=== PATIENT | male | born 1985 | race Caucasian/White ===

== ENCOUNTER → 2022-10-11 | Outpatient (CLI) | payer OTHER, SELFPAY | END | disposition home or self-care (01) | LOC: SL 10:46 | PROVIDERS: Visit Provider Nurse Practitioner Acute Care | DX: G47.33 Obstructive sleep apnea (adult) (pediatric) (principal); Z99.89 Dependence on other enabling machines and devices ==

== ENCOUNTER 2023-01-07 23:32 | Emergency (ER) | payer OTHER, SELFPAY ==
[2023-01-07 23:33] VITALS: BP 139/82; PULSE 76; RESP 18; TEMP 36.1; O2SAT 93; BMI 38.3
--- NOTE | 2023-01-08 00:14 | EKG12_ITS ---
Test Reason : SOB Blood Pressure : / mmHG Vent. Rate : 075 BPM Atrial Rate : 075 BPM P-R Int : 194 ms QRS Dur : 094 ms QT Int : 376 ms P-R-T Axes : 038 093 013 degrees QTc Int : 419 ms Normal sinus rhythm Rightward axis Borderline ECG Confirmed by FIFI MARY, TIM ([id number]), make up editor SAULO SEO ([id number]) on 01/09/2023 10:42:52 AM Referred By: BB Confirmed By:TIM CALIX MD
--- NOTE | 2023-01-08 00:21 | EDS_ITS ---
HPI History of Present Illness Chief Complaint: Shortness of Breath Informant: patient Onset/Context/Timing Onset: Hours (2) Activity at onset: gradual, onset and activity on onset (Sitting at rest playing cards) Timing: Continuous Quality: Positive for Tightness Location: Substernal (Across chest) Current Severity: Mild Maximum Severity: Moderate Worsened By: Nothing Relieved By: Nothing Associated Symptoms: Positive for Dyspnea and - (Radiation to left arm and tingling in left hand fingers) Narrative Narrative: Discomfort in chest that he thought maybe was his asthma so he tried albuterol b ut it did not help, then it started going into his left arm and tingling in his left hand so he came to the emergency department. No history of heart problems but he does have a history of hypertension and diabetes. [facility] Medical History (Updated 01/08/23 @ 02:[address] Conor Chaparro MD) Asthma Hypertension Impingement of right shoulder NORA (obstructive sleep apnea) Right shoulder pain Type 2 diabetes mellitus Home Medications allopurinol 300 mg tablet 300 mg PO DAILY 09/18/22 [History Last Taken Unknown] blood sugar diagnostic 09/18/22 [History Last Taken Unknown] dextroamphetamine-amphetamine ER 25 mg 24hr capsule,extend release (Adderall XR) 25 mg PO QAM 09/18/22 [History Last Taken Unknown] epinephrine 0.3 mg/0.3 mL injection, auto-injector (EpiPen) 0.3 mg IM ONCE 09/18/22 [History Last Taken Unknown] fenofibrate nanocrystallized 145 mg tablet 145 mg PO DAILY 09/18/22 [History Last Taken Unknown] glimepiride 2 mg tablet 4 mg PO BID 09/18/22 [History Last Taken Unknown] insulin NPH isoph U-100 human 100 unit/mL (3 mL) subcutaneous pen (Humulin N NPH U-100 Insulin KwikPen) 30 unit subcut BID 09/18/22 [History Last Taken Unknown] ipratropium 0.5 mg-albuterol 3 mg (2.5 mg base)/3 mL nebulization soln 3 ml inhalation 6XD 09/18/22 [History Last Taken Unknown] lisinopril 20 mg tablet 20 mg PO BID 09/18/22 [History Last Taken Unknown] loratadine 10 mg tablet (Allergy Relief (loratadine)) 10 mg PO DAILY 09/18/22 [History Last Taken Unknown] metformin 1,000 mg tablet 1,000 mg PO BIDWMEAL 09/18/22 [History Last Taken Unknown] methocarbamol 500 mg tablet 500 mg PO BID 09/18/22 [History Last Taken Unknown] naltrexone 50 mg tablet 12.5 mg PO DAILY 09/18/22 [History Last Taken Unknown] olopatadine 0.1 % eye drops 1 drp ophthalmic (eye) BID 09/18/22 [History Last Taken Unknown] sildenafil 100 mg tablet 100 mg PO DAILY PRN sexual activity 09/18/22 [History Last Taken Unknown] tirzepatide 12.5 mg/0.5 mL subcutaneous pen injector 12.5 mg subcut QWEEK 09/18/22 [History Last Taken Unknown] triamcinolone acetonide 55 mcg nasal spray aerosol (Nasacort) 2 spray intranasal DAILY 09/18/22 [History Last Taken Unknown] albuterol sulfate 90 mcg/actuation aerosol inhaler 2 puff inhalation Q6H PRN shortness of breath or wheezing #8.5 grams 09/26/22 [Rx Last Taken Unknown] ropinirole 1 mg tablet 2 mg (2 x 1 mg) PO DAILY #60 tabs 09/29/22 [Rx Last Taken Unknown] montelukast 10 mg tablet 10 mg PO DAILY #90 tabs 12/11/22 [Rx Last Taken Unknown] albuterol sulfate 2.5 mg/3 mL (0.083 %) solution for nebulization 2.5 mg (3 mL) inhalation Q4H PRN shortness of breath or wheezing #180 mL 12/20/22 [Rx Last Taken Unknown] budesonide 160 mcg-glycopyr 9 mcg-formot 4.8 mcg/actuation HFA inhaler (Breztri Aerosphere) 2 inh inhalation BID #10.7 grams 12/20/22 [Rx Last Taken Unknown] pantoprazole 40 mg tablet,delayed release 40 mg PO DAILY #14 tabs 01/08/23 [Rx Last Taken Unknown] Allergy/AdvReac Type Severity Reaction Status Date / Time Fish Containing Products Allergy Severe Anaphylaxis Verified 01/07/23 23:33 peanut Allergy Severe Anaphylaxis Verified 01/07/23 23:33 coconut Allergy Mild Hives Verified 01/07/23 23:33 grass pollen Allergy Mild Other Verified 01/07/23 23:33 Iodinated Contrast Media Allergy Mild unknown Verified 01/07/23 23:33 mold Allergy Mild Other Verified 01/07/23 23:33 Family History Father Asthma Sister Chronic bronchitis Surgical History History of hip surgery History of surgery on lower extremity Social History Smoking Status: Never smoker ROS ROS ED Constitutional Constitutional ED: Denies chills or fever(s) Eyes Eyes: Denies change in vision or diplopia ENT ENT ED: Denies rhinorrhea or sore throat Cardiovascular Cardiovascular: Reports chest pain; Denies palpitations Respiratory/Chest Respiratory/Chest: Reports dyspnea; Denies cough Gastrointestinal Gastrointestinal: Denies abdominal pain, diarrhea, nausea or vomiting Genitourinary Genitourinary ED: Denies dysuria or hematuria Musculoskeletal Musculoskeletal: Reports as per HPI and extremity pain; Denies back pain or neck pain Integumentary Denies abscess or rash Neurologic Neurologic: Reports paresthesias LUE (hand); Denies headache(s) or weakness Psychiatric Psychiatric: Denies anxiety or suicidal thoughts EXAM Physical Exam Const Vital Signs: 01/07/23 23:33 01/07/23 23:50 01/07/23 23:51 Temperature 97 F L Temperature Source Temporal Pulse Rate 76 Respiratory Rate 18 Respiratory Effort Normal Respiratory Depth Normal Respiratory Pattern Normal Normal Blood Pressure 139/82 H Blood Pressure Mean 101 Pulse Ox 93 Oxygen Delivery Method Room Air Room Air 01/08/23 00:14 Temperature Temperature Source Pulse Rate Respiratory Rate Respiratory Effort Respiratory Depth Respiratory Pattern Blood Pressure Blood Pressure Mean Pulse Ox Oxygen Delivery Method Room Air Positive well nourished and well developed General Appearance ED: well developed and NAD HEENT Reports moist mucous membranes normocephalic and atraumatic Eyes PERRL and EOMs intact bilaterally Neck full ROM and supple Resp normal respiratory effort and clear to auscultation bilaterally Cardio regular rate, regular rhythm and no murmurs GI non-tender and non-distended Auscultation: normoactive bowel sounds Palpation: soft Back/Spine no CVA tenderness General Back: other FROM Extremity normal to inspection General Extremety ED: Negative for edema, pulses abnormal or tenderness General Extremity: Negative for edema or pulses abnormal Neuro oriented x3, CN's II-XII intact bilaterally and no sensory deficits noted Sensorium / Orientation: awake and alert Motor Exam: strength 5/5 throughout Skin no rashes or lesions noted and no wounds Heart Score History: Moderately Suspicious Age: </= 45 years Risk Factors: 1 or 2 Risk Factors Score: 2 MDM MDM MDM Narrative Medical decision making narrative: Differential includes cardiac etiologies such as acute coronary syndrome, he has risk factors for that but is young for that problem, normal EKG argues against it at this time. Esophageal etiologies also in the differential diagnosis, less likely to be aortic dissection, pneumothorax, pulmonary embolus based on symptoms and vital signs. Chest x-ray 1 view on my interpretation normal s howing narrow mediastinum, no pneumonia or pneumothorax radiology in agreement. His initial troponin is negative, but his glucose came back at almost 500. Treated that with fast acting insulin and also gave him a GI cocktail which really seem to help his discomfort that was residual, as well as the left upper extremity symptoms. Repeat troponin came back normal as well. Given all of this uncomfortable discharging the patient home, we are going to repeat his blood sugar to make sure it is down prior to doing so and he is advised to follow-up. He is comfortable with that plan we will put him on 2-week course of a PPI. Lab Data Attestation: I reviewed the patient's lab results. Labs: Laboratory Results - last 24 hr 01/08/23 01/08/23 01/08/23 00:24 01:08 02:40 WBC 10.6 RBC 5.36 Hgb 15.0 Hct 43.8 MCV 81.7 MCH 28.0 MCHC 34.2 RDW Std Deviation 36.1 RDW Coeff of Anna 12.2 Plt Count 262 MPV 9.4 Immature Gran % (Auto) 0.800 Neut % (Auto) 65.2 Lymph % (Auto) 27.6 Marshall % (Auto) 4.5 Eos % (Auto) 1.4 Baso % (Auto) 0.5 Absolute Neuts (auto) 6.9 Absolute Lymphs (auto) 2.92 Nucleated RBC % 0 Sodium 131 L Potassium 4.4 Chloride 96 L Carbon Dioxide 29.0 Anion Gap 6 BUN 28 H Creatinine 1.28 Estim Creat Clear Calc 80.79 Est GFR (MDRD) Af Amer 81 Est GFR (MDRD) Non-Af 67 BUN/Creatinine Ratio 21.9 H Glucose 492 H* Calcium 9.5 Troponin I High Sens 13 14 POC Glucose 428 H Radiography Diagnostic Testing: Clinical Impression(s) from Imaging Studies Chest X-Ray 01/08/23 00:30 IMPRESSION: Normal x-ray examination of the chest. Electronically Signed: Kamille Polo MD at 0:50 EST , Rhythm Strip Rhythm Strip: Sinus Rhythm Rate: 75 Ectopy: None EKG Initial EKG: Attestation: I personally reviewed and interpreted this EKG as follows: Interpretation: Sinus Rhythm and No Acute Injury Pattern Comments: nml EKG Discharge Plan Triage Chief Complaint: Shortness of Breath Other Complaint: Other, Pain/Inj ED Provider: Conor Chaparro Dx/Rx/DC Orders Clinical Impression: Hyperglycemia due to type 2 diabetes mellitus, Chest pain, unspecified Instructions: ED Chest Pain, Noncardiac, ED Diabetic Hyperglycemia Prescriptions: New pantoprazole 40 mg tablet,delayed release (DR/EC) 40 mg PO DAILY Qty: 14 0RF No Action allopurinol 300 mg tablet 300 mg PO DAILY (DME) blood sugar diagnostic Strip See Rx Instructions .Route Rx Instructions: As directed dextroamphetamine-amphetamine [Adderall XR] 25 mg capsule,extended release 24hr 25 mg PO QAM epinephrine [EpiPen] 0.3 mg/0.3 mL auto-injector 0.3 mg IM ONCE Rx Instructions: as a single dose; may repeat once fenofibrate nanocrystallized 145 mg tablet 145 mg PO DAILY glimepiride 2 mg tablet 4 mg PO BID Humulin N NPH Insulin KwikPen 100 unit/mL (3 mL) insulin pen 30 unit subcut BID Rx Instructions: 38 units with breakfast, 38 units with supper. ipratropium-albuterol 0.5 mg-3 mg(2.5 mg base)/3 mL solution for nebulization 3 ml inhalation 6XD lisinopril 20 mg tablet 20 mg PO BID loratadine [Allergy Relief (loratadine)] 10 mg tablet 10 mg PO DAILY metformin 1,000 mg tablet 1,000 mg PO BIDWMEAL methocarbamol 500 mg tablet 500 mg PO BID naltrexone 50 mg tablet 12.5 mg PO DAILY olopatadine 0.1 % drops 1 drp ophthalmic (eye) BID Rx Instructions: separate doses by at least 6-8 hours sildenafil 100 mg tablet 100 mg PO DAILY PRN (Reason: sexual activity) Rx Instructions: administer 30 minutes to 4 hours before activity tirzepatide 12.5 mg/0.5 mL pen injector 12.5 mg subcut QWEEK triamcinolone acetonide [Nasacort] 55 mcg aerosol,spray 2 spray intranasal DAILY Rx Instructions: administer into each nostril albuterol sulfate 90 mcg/actuation HFA aerosol inhaler 2 puff inhalation Q6H PRN (Reason: shortness of breath or wheezing) Qty: 8.5 11RF Breztri Aerosphere 160-9-4.8 mcg/actuation HFA aerosol inhaler 2 inh inhalation BID Qty: 10.7 11RF albuterol sulfate 2.5 mg /3 mL (0.083 %) solution for nebulization 2.5 mg inhalation Q4H PRN (Reason: shortness of breath or wheezing) Qty: 180 6RF ropinirole 1 mg tablet 2 mg PO DAILY Qty: 60 11RF Rx Instructions: Takes 1mg 3 hours prior to bed and 1mg at HS montelukast 10 mg tablet 10 mg PO DAILY Qty: 90 3RF Primary Care Provider: SUNNI CHUN Referrals: SUNNI CHUN [Other] - 5-7 Days Disposition Disposition: Home, Self Care
[2023-01-08] MEDS: Mag Hydrox/Al Hydrox/Simeth 30 ML UDC PO (00:27)
--- NOTE | 2023-01-08 00:30 | RAD_ITS ---
STUDY: X-RAY CHEST REASON FOR EXAM: Male, 37 years old. chest pain TECHNIQUE: Single AP portable view of the chest. COMPARISON: None. FINDINGS: The lungs are clear and underexpanded. There is no demonstrated pleural abnormality. Normal size heart. Normal mediastinum and mauricio. Normal visualized pulmonary arteries. Normal visualized aortic arch and descending thoracic aorta. Normal visualized thoracic spine. Normal visualized ribs, clavicles, and shoulders. There is no demonstrated abnormality of the visualized soft tissue structures of the upper abdomen. RAD/Chest 1 View (Portable) IMPRESSION: Normal x-ray examination of the chest. Electronically Signed: Kamille Polo MD at 0:50 EST ,
[2023-01-08 00:31] LABS: Absolute Lymphocyte Count 2.92 X10^3/uL (0.83-4.51); Absolute Neutrophil Count 6.9 X10^3/uL (2.0-7.7); Basophil# 0.05 X10^3/uL; Basophil% 0.5 % (0-1); Eosinophil# 0.15 X10^3/uL; Eosinophils% 1.4 % (0-5); Hematocrit 43.8 % (40-54); Lymphocyte # 2.92 X10^3/ul (0.83-4.51); Lymphocyte % 27.6 % (19-41); Mean Corp Hgb Conc 34.2 g/dL (32-36); Mean Corpuscular Volume 81.7 fL (80-94); Mean Platelet Vol. 9.4 fl (6.2-12.0); Monocyte# 0.48 X10^3/uL; Monocyte% 4.5 % (0-10); NRBC Flagged by Analyzer 0 % (0-5); Neutrophil % 65.2 % (47-70); Platelet Count 262 K/mm3 (150-450); RBC Distribution Width CV 12.2 % (11.6-14.6); RBC Distribution Width SD 36.1 fl (35.1-43.9); Red Blood Count 5.36 M/mm3 (4.6-6.2); White Blood Count 10.6 K/mm3 (4.4-11.0)
[2023-01-08 00:57] LABS: Anion Gap 6 (5-15); BUN 28 mg/dL (7-18); BUN/Creat Ratio 21.9 RATIO (10-20); Calcium,Total 9.5 mg/dL (8.5-10.1); Chloride 96 mmol/L (98-107); Creatinine, Serum 1.28 mg/dL (0.70-1.30); EST Glomerular Filtration Rate 67 mL/min (>60); Est Glom Filt Rate - Afr Amer 81 mL/min (>60); Estimated Creatinine Clearance 80.79 ml/min; Glucose 492 mg/dL (74-106); Potassium 4.4 mmol/L (3.5-5.1); Sodium Level 131 mmol/L (136-145); Troponin-I HS (w/2H Reflex) 13 pg/mL (3.0-78.0)
[2023-01-08] MEDS: Insulin Lispro 100 UNIT/ML INSULN.PEN 20 UNIT SC (01:09)
[2023-01-08 01:31] LABS: Bedside Glucose 428 mg/dL (74-106)
[2023-01-08 01:32] VITALS: BP 141/67; PULSE 98; RESP 14; O2SAT 99
[2023-01-08 02:26] LABS: Reflex Troponin-HS? (from REC) Y
[2023-01-08 03:08] LABS: Troponin-I HS 14 pg/mL (3.0-78.0)
[2023-01-08 03:32] VITALS: BP 135/84; PULSE 75; RESP 12; O2SAT 99
[2023-01-08 03:32] LABS: Bedside Glucose 333 mg/dL (74-106)
== END 2023-01-08 03:39 | disposition home or self-care (01) ==
PROVIDERS: Emergency Provider Emergency Medicine; Visit Provider Emergency Medicine
DX: R06.02 Shortness of breath (principal); E11.65 Type 2 diabetes mellitus with hyperglycemia; Z79.4 Long term (current) use of insulin; R07.9 Chest pain, unspecified; I10 Essential (primary) hypertension; Z79.899 Other long term (current) drug therapy; Z79.84 Long term (current) use of oral hypoglycemic drugs; J45.909 Unspecified asthma, uncomplicated; Z79.51 Long term (current) use of inhaled steroids
CPT/HCPCS: 71045; 80048; 82962; 84484; 85025; 93005; 96372; 99285; A4216

== ENCOUNTER → 2023-02-06 | Outpatient (CLI) | payer OTHER, SELFPAY ==
--- NOTE | 2023-02-06 07:40 | MRI_ITS ---
STUDY: MRI RIGHT SHOULDER REASON FOR EXAM: Male, 37 years old. Pain with limited range of motion. Evaluate for labral tear. TECHNIQUE: Standardized fat and water weighted pulse sequences were obtained in all 3 orthogonal planes. COMPARISON: None. FINDINGS: Minimal supraspinatus and infraspinatus tendinosis without a partial-thickness or full-thickness tear (coronal series 6 images 3-12). Mild subscapularis tendinosis without a partial thickness or full thickness tear (axial series 3 images 10-14). Normal teres minor tendon. Normal supraspinatus muscle. Normal infraspinatus muscle. Normal subscapularis muscle. Normal teres minor muscle. Small glenohumeral joint effusion (axial series 3 image 13). Normal humeral head and visualized proximal humerus. Normal biceps labral complex. Normal intracapsular long biceps tendon. Normal labrum. Normal capsulo- ligamentous complex. Normal rotator interval. Bone marrow edema in the distal clavicle and adjacent acromion with mild AC joint hypertrophy, medial to lateral downsloping of the acromion and mild narrowing of the subacromial space (coronal series 6 images 8-16). There is a Type II morphology (curved), with a neutral orientation. There is no subacromial-subdeltoid bursal fluid. Normal visualized coracohumeral and coracoacromial ligaments. Normal quadrilateral space. Normal axillary space. Normal deltoid muscle. Normal trapezius muscle. MRI/Upper Ext Joint Only(Routine) IMPRESSION: Supraspinatus, infraspinatus and subscapularis tendinosis without a partial-thickness or full-thickness tear. Reactive bone marrow edema in the distal clavicle and adjacent acromion. Mild medial to lateral downsloping of the acromion with minimal AC joint hypertrophy resulting in narrowing of the subacromial space. Small glenohumeral joint effusion. Electronically Signed: Evan Ferrell MD at 10:34 EST ,
== END | disposition home or self-care (01) ==
LOC: MRI 07:35
PROVIDERS: Visit Provider Orthopaedic Surgery Sports Medicine
DX: M25.811 Other specified joint disorders, right shoulder (principal); M25.511 Pain in right shoulder
CPT/HCPCS: 73221

== ENCOUNTER 2023-03-12 12:00 | Outpatient (RCR) | payer OTHER, SELFPAY ==
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
--- NOTE | 2023-01-31 12:45 | HP.PTDCNRP_ITS ---
Patient Information Patient Information: FLORA FUENTES was seen in my office for initial evaluation on 01/02/23. The following Plan of Care was established for this patient: POC Established Initial Frequency: 2x /Week Initial Duration: 4-6 Weeks Anticipated Interventions Patient/Client Instruction: Educate patient on: Condition, Plan of Care and Risk Factors For the Purpose of:: To improve self management Therapeutic Exercise to Include: Strength training, Endurance training, Body mechanics, Postural training, Neuromotor development and Scapular S trength/Stabilization For the Purpose of:: To decrease pain, To improve muscle performance and motor function, To increase tolerance to activity/condition/position and To improve ability of physical actions for home/community/work/leisure Cryotherapy (ice pack, ice massage): Yes Thermo therapy (hot pack): Yes For the Purpose of:: To decrease pain and To improve nutrient delivery to tissue Last Seen Last Seen: This patient was last seen in our office 01/19/23. Pertinent comments regarding their Physical therapy will appear below: This patient has not returned to Physical Therapy and is appropriate to return to MD for further follow-up as needed. At this point I will be discontinuing this patient from physical therapy. I would be happy to see this patient again in the future if found appropriate by the physician. Thank you! Quin Gary, PT, Cert MDT Balance/Gait/Functional tests Balance/Special Test Scores Quick DASH Score: 38.6395
--- NOTE | 2023-02-19 12:55 | HP.PTREVAL ---
Re-Evaluation Intro: SUNNI CHUN, It has been my pleasure to treat FLORA FUENTES over the last 9 visits for CHRONIC R SHOULDER PAIN. Please see the progress note below for an update on the physical therapy plan of care! Subjective Subjective: PATIENT STATES: I DON'T HAVE RANDOM PAIN ANYMORE - THE ONLY TIME IT HURTS NOW IS IF I HAVE BEEN USING IT. 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 IT GETS ROUGH IF I HAVE TO LIFT SOMETHING HEAVY OR LIFTING OVER HEAD EVEN IF IT IS LIGHT LIKE 2 LBS. PATIENT REPORTS HE HAD THE MRI OF HIS R SHLD AND THEN FOLLW UP WITH DR. YANEZ. HE REPORTS DR. YANEZ GAVE HIM THE OPTION OF HAVING SURGERY OR CONTINUING PT LONG NEEDED/HELPFUL. PATIENT REPORTS HE WOULD LIKE TO CONTINUE PT AND AVOID SURGERY LONG POSSIBLE. Objective Objective/Function: PATIENT WAS SEEN TODAY FOR RE-ASSESSMENT OF PROGRESS TOWARD THE SET PT GOALS AND THE NEED FOR FURTHER PHYSICAL THERAPY VS READINESS FOR DISCHARGE. PATIENT IS MAKING GOOD PROGRESS WITH PT AND IS A GOOD CANDIDATE TO CONTINUE PT BASED ON PROGRESS MADE AND ROOM FOR FURTHER IMPROVEMENT, PATIENT IS AGREEABLE. UPON EXAM TODAY: Motor deficit: R SCAPULAR - FAIR. ,R SHLD FLEX 4/5, ABD 4/5, IR 4/5, ER 4/5. ELBOW 5/5. 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 C/O R SHLD PAIN DURING FLEXION TESTING BUT DOES NOT REMAIN WORSE A RESULT. C/O PAIN IS MORE ISOLATED TO ERP WITH R SHLD IR AND ER AROM TESTING TODAY WITH LITTLE TO NO C/O PAIN OTHER PLANES INCLUDING HORIZONTAL ADDUCTION. Plan Plan Plan: 2X'S A WK X 9 VISITS. NO OVER-HEAD PRESS. CONTINUE TO FOCUS ON R SCAPULAR STRENGTH/STABILIZATION. POSTURE CORRECTION/STRENGTHENING. GENERAL R UE STRENGTHENING AND PROPROCEPTION TRAINING INCLUDING IN WEIGHTBEARING. Balance/Gait/Functional tests Balance/Special Test Scores Quick DASH Score: 22.7250 Goals Goals Goal 1:: FULL AROM R SHLD WITHOUT C/O PAIN TO EASE ADL'S. Goal Time Frame: 4-6 Weeks Goal Progress: Progressing Goal 2:: 10 POINT IMPROVEMENT ON QUICK DASH FUNCTIONAL SCREEN TO SHOW IMPROVED FUNCTION Goal Time Frame: 4-6 Weeks Goal Progress: Progressing Goal 3:: IMPROVEMENT OF 1 MUSCLE GRADE OF ALL INVOLVED MUSCULATURE TO EASE ADL'S. Goal Time Frame: 4-6 Weeks Goal Progress: Progressing Goal 4:: INDEP MAINTENANCE OF POSTURE CORRECTION THROUGHOUT TREATMENT SESSION Goal Time Frame: 4-6 Weeks Goal Progress: Progressing Goal 5:: INDEP HEP Goal Time Frame: 4-6 Weeks Goal Progress: Progressing Anticipated Interventions Anticipated Interventions Patient/Client Instruction: Educate patient on: Condition, Plan of Care and Risk Factors For the Purpose of:: To improve self management Therapeutic Exercise to Include: Strength training, Endurance training, Body mechanics, Postural training, Neuromotor development and Scapular Strength/Stabilization For the Purpose of:: To decrease pain, To improve muscle performance and motor function, To increase tolerance to activity/condition/position and To improve ability of physical actions for home/community/work/leisure Cryotherapy (ice pack, ice massage): Yes Thermo therapy (hot pack): Yes For the Purpose of:: To decrease pain and To improve nutrient delivery to tissue Re-Evaluation Ending Re-evaluation ending: Please do not hesitate to contact me at [phone] by phone or if you have questions or concerns regarding this new plan of care! Sincerely, Quin Gary, PT, Cert MDT
--- NOTE | 2023-03-16 12:30 | HP.PTDCSUM ---
Discharge Summary D/C summary: It has been my pleasure to treat FLOAR FUENTES referred by SUNNI CHUN, with the diagnosis of CHRONIC R SHOULDER PAIN for a total of 15 visit(s). Discharge Date: 03/16/23 Please see the following information for a summary of their discharge status. Subjective Subjective: PATIENT REPORTS HIS SHOULDER IS DOING BETTER. MY ROM IS BETTER. I CAN GET IT UP HIGHER WITHOUT BEING IN MUCH STRESS. IT IS GETTING STRONGER BUT I DON'T HAVE MUCH STAMINA BUT I THINK IT WILL BUILD UP WITH TIME. I CAN ONLY PLAY GUITAR FOR ABOUT 5 MINUTES BEFORE IT STARTS BUGGY ME'. STATES HE WAS ABLE TO DO SOME MOPPING LAST NIGHT WITHOUT INCREASED PAIN AND THAT WAS GOOD - TIRED BUT NO PAIN. HE STATES THERAPY HAS HELPED AND HE FEELS HE CAN CONTINUE EXERCISING ON HIS OWN NOW. PAIN IS STILL CONSTANT AND RANGES 1-5/10. (5/10 PLAYING GUITAR - [place] - SHARP PAINS RUNNING DOWN THE FRONT - CALMED BACK DOWN IN 5 MNUTES). Pain R shoulder: Pain Intensity (Out of 10): 1 Overall Improvement % Improvement: 85 Objective Objective/Function: PATIENT WAS SEEN TODAY FOR RE-ASSESSMENT OF PROGRESS TOWARD THE SET PT GOALS AND THE NEED FOR FURTHER PHYSICAL THERAPY VS READINESS FOR DISCHARGE. THIS PATIENT HAS MADE GREAT PROGRESS WITH PT AND IS INDEP WITH A HEP. HE IS APPROPRIATE FOR D/C AND FOLLOW UP WITH DR. YANEZ NEEDED. UPON EXAM TODAY: Motor deficit: R SCAPULAR - GOOD. ,R SHLD FLEX 5/5, ABD 5/5, IR 5/5, ER 5/5. ELBOW 5/5. 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 FULL PAINFREE AROM ALL PLANES. INITIALLY PATIENT FELT A STRETCH TRANITIONING FROM FULL EXTERNAL ROTATION TO FULL INTERNAL ROTATION WITH TESTING BUT THEN LOOSENED UP WITH SECOND REPETITION. PATIENT CONTINUES TO HAVE DECREASED PROPER POSTURAL AWARENESS BUT CORRECTS WITH CUEING. DOES NOT MAINTAIN. FURTHER INSTRUCTION GIVEN TO PATIENT ABOUT IMPORTANCE OF POSTURE ON SHOULDER FUNCTION AND PATIENT RECEPTIVE. Goals Goal 1:: FULL AROM R SHLD WITHOUT C/O PAIN TO EASE ADL'S. Goal Progress: Goal Met Goal 2:: 10 POINT IMPROVEMENT ON QUICK DASH FUNCTIONAL SCREEN TO SHOW IMPROVED FUNCTION Goal Progress: Goal Met Goal 3:: IMPROVEMENT OF 1 MUSCLE GRADE OF ALL INVOLVED MUSCULATURE TO EASE ADL'S. Goal Progress: Goal Met Goal 4:: INDEP MAINTENANCE OF POSTURE CORRECTION THROUGHOUT TREATMENT SESSION Goal Progress: Not Progressing Goal 5:: INDEP HEP Goal Progress: Goal Met Plan Plan: D/C TO INDEP EX AND FOLLOW UP WITH DR. YANEZ NEEDED. D/C Information d/c sentence: If there are questions or concerns regarding this patient's physical therapy, please feel free to call me at [phone]. Thank you for the referral of this patient. Sincerely, Quin Gary, PT, Cert MDT Balance/Gait/Functional tests Balance/Special Test Scores Quick DASH Score: 18.1800 Improvement % Improvement: 85
== END 2023-03-12 19:00 | disposition home or self-care (01) ==
LOC: PT 12:00
DX: M25.511 Pain in right shoulder (principal); G89.29 Other chronic pain
CPT/HCPCS: 97110; 97162; 97164

== ENCOUNTER → 2023-07-18 | Outpatient (CLI) | payer OTHER, SELFPAY | END | disposition home or self-care (01) | LOC: SL 08:44 | PROVIDERS: Referring Provider Nurse Practitioner Acute Care; Visit Provider Nurse Practitioner Acute Care | DX: G47.33 Obstructive sleep apnea (adult) (pediatric) (principal) ==

== ENCOUNTER → 2023-11-06 | Outpatient (CLI) | payer OTHER, SELFPAY ==
[2023-11-06 17:00] LABS: Microalbumin,Random Urine 34.5 mg/L (NO RANGE EST.); Microalbumin:Creatinine Ratio 31.4 mg/g CRE (<30 mg/g CRE)
[2023-11-06 17:14] LABS: ALB/GLOB Ratio 1.2 RATIO (0.9-2.4); AST(SGOT) 25 U/L (15-37); Alanine Aminotransfer ALT/SGPT 60 U/L (16-61); Albumin, Serum 4.2 g/dL (3.2-5.0); Alkaline Phosphatase 52 U/L (45-117); Anion Gap 4 (5-15); BUN 25 mg/dL (7-18); BUN/Creat Ratio 15.2 RATIO (10-20); Calcium,Total 9.7 mg/dL (8.5-10.1); Chloride 105 mmol/L (98-107); Cholesterol 154 mg/dL (200); Creatinine, Serum 1.64 mg/dL (0.70-1.30); EST Glomerular Filtration Rate 50 mL/min (>60); Est Glom Filt Rate - Afr Amer 60 mL/min (>60); Globulin 3.5 g/dL (2.2-4.2); Glucose 161 mg/dL (74-106); High Density Lipoprotein 30 mg/dL; Potassium 4.5 mmol/L (3.5-5.1); Protein, Total 7.7 g/dL (6.4-8.2); Sodium Level 137 mmol/L (136-145); Triglycerides 346 mg/dL; Very Low Density Lipoprotein 69 mg/dL (5-40)
[2023-11-06 17:18] LABS: Hemoglobin A1c 8.4 % (3.8-5.6)
== END | disposition home or self-care (01) ==
LOC: LAB 15:29
PROVIDERS: PCP Nurse Practitioner Family
DX: E11.65 Type 2 diabetes mellitus with hyperglycemia (principal); Z79.4 Long term (current) use of insulin
CPT/HCPCS: 36415; 80053; 80061; 82043; 82570; 83036

== ENCOUNTER 2024-03-17 09:00 | Outpatient (CLI) | payer OTHER, SELFPAY ==
--- NOTE | 2024-03-18 14:09 | EKG12_ITS ---
Test Reason : PRE OP Blood Pressure : */* mmHG Vent. Rate : 78 BPM Atrial Rate : 78 BPM P-R Int : 166 ms QRS Dur : 98 ms QT Int : 360 ms P-R-T Axes : 29 116 -19 degrees QTcB Int : 410 ms Normal sinus rhythm Left posterior fascicular block Possible Inferior infarct , age undetermined Abnormal ECG Confirmed by OLGA TAVERA ([id number]), visual effects editor [address] ([id number]) on 03/19/2024 7:35:00 AM Also confirmed by TIM CALIX MD ([id number]), visual effects editor [address] ([id number]) on 03/19/2024 7:37:28 AM Referred By: Torrey Flannery Confirmed By: TIM CALIX MD
[2024-03-18 15:02] LABS: Hematocrit 42.5 % (40-54); Hemoglobin 14.7 g/dL (13.0-16.5); Mean Corp Hgb Conc 34.6 g/dL (32-36); Mean Corpuscular Hgb 28.3 pg (27.0-32.0); Mean Corpuscular Volume 81.9 fL (80-94); Mean Platelet Vol. 9.5 fl (6.2-12.0); Platelet Count 302 K/mm3 (150-450); RBC Distribution Width CV 12.6 % (11.6-14.6); RBC Distribution Width SD 37.2 fl (35.1-43.9); Red Blood Count 5.19 M/mm3 (4.6-6.2); White Blood Count 8.7 K/mm3 (4.4-11.0)
[2024-03-18 15:38] LABS: Hemoglobin A1c 10.5 % (3.8-5.6)
--- NOTE | 2024-03-19 08:56 | PAT.ANE_ITS ---
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 When Was Last Pacemaker Check QUESTION #4 FULL TEXT: You/Your Family Experience fever (hyperthermia) with Anesthesia Last Oral Intake Last Oral intake: Last Oral Intake NPO since Meds taken in AM with sips of water? 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 Has anyone observed you stop breathing during sleep? STOP Results Positive 03/18/24 10:12 QUESTION #5 FULL TEXT : Do you snore loudly (louder than talking or can be heard through closed doors)? 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 Specify any problems Hx of Preganancy in last 3 N/A 03/18/24 10:12 Months Nurse Filling Out Transfusion NBUCHER 03/18/24 10:12 & Questions: Date: 03/18/24 03/18/24 10:12 Time: 10:14 03/18/24 10:12 Patient unable to answer at this time (ie. 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 operator Hx Now No 03/18/24 10:12 Gestational Age (in weeks): EDC: Hx Hx Para Hx Section SAB No 03/18/24 10:12 [facility] Medical History (Updated 03/18/24 @ 10:20 by Heather Dubois) Loss of hearing Broken tooth Wears glasses ADHD MRSA infection Gout Insulin dependent diabetes mellitus Fatty liver High cholesterol History of hiatal hernia Restless legs GERD (gastroesophageal reflux disease) CPAP (continuous positive airway pressure) dependence Sleep apnea Leg cramps Non-smoker Cardiology follow-up encounter Arthrosis of right acromioclavicular joint Type 2 diabetes mellitus Hypertension Impingement of right shoulder Right shoulder pain NORA (obstructive sleep apnea) Asthma Home Medications ?Medication ?Instructions ?Recorded ?Last Taken ?Type blood sugar diagnostic 09/18/22 Unknown History epinephrine 0.3 mg/0.3 mL 0.3 mg IM ONCE 09/18/22 Unkn own History injection, auto-injector (EpiPen) fenofibrate nanocrystallized 145 145 mg PO DAILY 09/18 Unknown History mg tablet insulin NPH isoph U-100 human 100 30 unit subcut BID 0 09/18/22 Unknown History unit/mL (3 mL) subcutaneous pen (Humulin N NPH U-100 Insulin KwikPen) lisinopril 20 mg tablet 20 mg PO BID 09/18/22 Unknow n History loratadine 10 mg tablet (Allergy 10 mg PO DAILY Unknown History Relief (loratadine)) metformin 1,000 mg tablet 1,000 mg PO BIDWMEAL 3 Unknown History methocarbamol 500 mg tablet 500 mg PO BID 09/18/22 Unk nown History sildenafil 100 mg tablet 100 mg PO DAILY PRN sexual a ctivity 09/18/22 Unknown History tirzepatide 12.5 mg/0.5 mL 12.5 mg subcut MO 09/18/22 Unknown History subcutaneous pen injector ropinirole 1 mg tablet 2 mg (2 x 1 mg) PO DAILY #60 tabs 10/11/23 Unknown Rx albuterol sulfate 2.5 mg/3 mL 2.5 mg (3 mL) inhalation Q4H PRN 03/17/24 Unknown Rx (0.083 %) solution for nebulization shortness of breat h or wheezing #180 mL albuterol sulfate 90 mcg/actuation 2 puff inhalation Q 6H PRN 03/17/24 Unknown Rx aerosol inhaler shortness of breath or wheez ing #8.5 grams budesonide 160 mcg-glycopyr 9 2 inh inhalation BID #10 .7 grams 03/17/24 Unknown Rx mcg-formot 4.8 mcg/actuation HFA inhaler (Breztri Aerosphere) dextroamphetamine-amphetamine ER 30 mg PO DAILY Unknown History 30 mg 24hr capsule,extend release ipratropium 0.5 mg-albuterol 3 mg 3 ml inhalation 6XD PRN shortness 03/17/24 Unknown Rx (2.5 mg base)/3 mL nebulization of breath or wheezing #180 mL soln montelukast 10 mg tablet 10 mg PO DAILY #90 tabs 05/06 Unknown Rx pantoprazole 40 mg tablet,delayed 40 mg PO DAILY PRN g erd 03/17/24 Unknown History release Allergy/AdvReac Type Severity Reaction Status Date / Time Fish Containing Products Allergy Severe Anaphylaxis Verified 03/18/24 10:07 peanut Allergy Severe Anaphylaxis Verified 03/18/24 10:07 coconut Allergy Mild Hives Verified 03/18/24 10:07 grass pollen Allergy Mild Other Verified 03/18/24 10:07 Iodinated Contrast Media Allergy Mild unknown Verified 03/18/24 10:07 mold Allergy Mild Other Verified 03/18/24 10:07 Family History (Reviewed 03/17/24 @ 11:28 by Juliet García BUTTON MACHINE OPERATOR, BUTTON MACHINE OPERATOR-C) Father Asthma Sister Chronic bronchitis Surgical History History of incision and drainage History of surgery on lower extremity History of hip surgery Social History (Reviewed 03/17/24 @ 11:28 by Juliet García BUTTON MACHINE OPERATOR, BUTTON MACHINE OPERATOR-C) Smoking Status: Never smoker Audit: Pertinent Findings Pertinent Findings EKG Perinent findings: 03/18/2024 normal sinus rhythm 78 bpm left posterior fascicular block possible inferior infarct age undetermined Pulmonary function results/spirometer pertinent findings: Chest x-ray 01/08/2023 normal x-ray examination of chest Recommendation Anesthesia Recommendation Anesthesia recommendation: OPTIMIZED for anesthesia
== END 2024-03-17 19:00 | disposition home or self-care (01) ==
LOC: SDC 12-25 11:13
PROVIDERS: Anesthesiology; PCP Nurse Practitioner Family; Referring Provider Orthopaedic Surgery Sports Medicine; Visit Provider Orthopaedic Surgery Sports Medicine
DX: Z01.818 Encounter for other preprocedural examination (principal)
CPT/HCPCS: 83036; 85027; 93005

== ENCOUNTER 2024-03-19 19:52 | Emergency (ER) | payer OTHER, SELFPAY ==
[2024-03-19 19:53] VITALS: BP 158/67; PULSE 80; RESP 16; TEMP 36.7; O2SAT 98; BMI 36.6
--- NOTE | 2024-03-19 20:40 | EX.ED.DYSGE1 ---
HPI History of Present Illness Chief Complaint: Abscess Narrative Narrative: 38-year-old male with past medical history of diabetes type 2, previous scrotal abscess/groin abscess that ended up being MRSA back in November of last year, approximately 3 months ago presents with pain and swelling of his left scrotal area. He states it started out small about a week ago. Chafing caused the small white pustule to break. He states over the last 3 days the swelling in his left scrotum has gotten larger. There was a time prior to this where it had drained purulent material. He denies any fevers or chills, no nausea or vomiting. He started having pain in his left scrotal wall today. No exacerbating or alleviating factors. [facility] Medical History Loss of hearing Broken tooth Wears glasses ADHD MRSA infection Gout Insulin dependent diabetes mellitus Fatty liver High cholesterol History of hiatal hernia Restless legs GERD (gastroesophageal reflux disease) CPAP (continuous positive airway pressure) dependence Sleep apnea Leg cramps Non-smoker Cardiology follow-up encounter Arthrosis of right acromioclavicular joint Type 2 diabetes mellitus Hypertension Impingement of right shoulder Right shoulder pain NORA (obstructive sleep apnea) Asthma Home Medications ?Medication ?Instructions ?Recorded ?Last Taken ?Type blood sugar diagnostic 09/18/22 Unknown History epinephrine 0.3 mg/0.3 mL 0.3 mg IM ONCE 09/18/22 Unknown History injection, auto-injector (EpiPen) fenofibrate nanocrystallized 145 145 mg PO DAILY 09/18/22 Unknown History mg tablet insulin NPH isoph U-100 human 100 30 unit subcut BID 09/18/22 Unknown History unit/mL (3 mL) subcutaneous pen (Humulin N NPH U-100 Insulin KwikPen) lisinopril 20 mg tablet 20 mg PO BID 09/18/22 Unknown History loratadine 10 mg tablet (Allergy 10 mg PO DAILY 09/18/22 Unknown History Relief (loratadine)) metformin 1,000 mg tablet 1,000 mg PO BIDWMEAL 09/18/22 Unknown History methocarbamol 500 mg tablet 500 mg PO BID 09/18/22 Unknown History sildenafil 100 mg tablet 100 mg PO DAILY PRN sexual activity 09/18/22 Unknown History tirzepatide 12.5 mg/0.5 mL 12.5 mg subcut MO 09/18/22 Unknown History subcutaneous pen injector ropinirole 1 mg tablet 2 mg (2 x 1 mg) PO DAILY #60 tabs 10/11/23 Unknown Rx albuterol sulfate 2.5 mg/3 mL 2.5 mg (3 mL) inhalation Q4H PRN 03/17/24 Unknown Rx (0.083 %) solution for nebulization shortness of breath or wheezing #180 mL albuterol sulfate 90 mcg/actuation 2 puff inhalation Q6H PRN 03/17/24 Unknown Rx aerosol inhaler shortness of breath or wheezing #8.5 grams budesonide 160 mcg-glycopyr 9 2 inh inhalation BID #10.7 grams 03/17/24 Unknown Rx mcg-formot 4.8 mcg/actuation HFA inhaler (Breztri Aerosphere) dextroamphetamine-amphetamine ER 30 mg PO DAILY 03/17/24 Unknown History 30 mg 24hr capsule,extend release ipratropium 0.5 mg-albuterol 3 mg 3 ml inhalation 6XD PRN shortness 03/17/24 Unknown Rx (2.5 mg base)/3 mL nebulization of breath or wheezing #180 mL soln montelukast 10 mg tablet 10 mg PO DAILY #90 tabs 03/17/24 Unknown Rx pantoprazole 40 mg tablet,delayed 40 mg PO DAILY PRN gerd 03/17/24 Unknown History release doxycycline monohydrate 100 mg 100 mg PO BID #20 CAPSULES 03/19/24 Unknown Rx capsule hydrocodone-acetaminophen 5-325mg 1 tab PO Q6H PRN pain 3 days #12 03/19/24 Unknown Rx 5mg-325mg tabs sulfamethoxazole 800 1 tab PO BID 10 days #20 tabs 03/19/24 Unknown Rx mg-trimethoprim 160 mg tablet (Bactrim DS) Allergy/AdvReac Type Severity Reaction Status Date / Time Fish Containing Products Allergy Severe Anaphylaxis Verified 03/19/24 19:55 peanut Allergy Severe Anaphylaxis Verified 03/19/24 19:55 coconut Allergy Mild Hives Verified 03/19/24 19:55 grass pollen Allergy Mild Other Verified 03/19/24 19:55 Iodinated Contrast Media Allergy Mild unknown Verified 03/19/24 19:55 mold Allergy Mild Other Verified 03/19/24 19:55 Family History Father Asthma Sister Chronic bronchitis Surgical History History of incision and drainage History of surgery on lower extremity History of hip surgery Social History Smoking Status: Never smoker ROS ROS ED ROS Narrative Review of systems positive for left scrotal abscess, pain and swelling. Previous drainage. No fevers or chills. No dysuria or hematuria, no current redness or drainage. EXAM Physical Exam Narrative Exam Narrative: Afebrile. Vital signs noted. Nontoxic-appearing. Cardiovascular examination reveals a regular rate and rhythm. Lungs are clear to auscultation bilaterally. Abdomen is soft nontender with positive bowel sounds. Inspection of the left scrotal area does reveal an approximate 2 to 3 cm indurated area without fluctuance, no overlying erythema. No active drainage. Const Vital Signs: 03/19/24 19:53 Temperature 98.1 F Temperature Source Temporal Pulse Rate 80 Respiratory Rate 16 Blood Pressure 158/67 H Blood Pressure Mean 97 Pulse Ox 98 Oxygen Delivery Method Room Air MDM MDM MDM Narrative Medical decision making narrative: Differential diagnosis includes but not limited to scrotal abscess versus indurated area from previous drainage. Also the differential would be MRSA as he was diagnosed with this previously. I do not feel he requires any lab work or imaging. I did discuss with him incision and drainage and that I do not feel that currently there is any fluctuance that would necessitate incision and drainage. Additionally, patient prefers outpatient trial of antibiotics. With the thought that this could be MRSA he was given his first doses of doxycycline and Bactrim DS here in the emergency department and prescription written for the next 10 days. He was also given a [place] for analgesia and prescription for 3 days written for this. He was referred to urology on-call, Dr. Buchanan. I feel he can be discharged safely home with follow-up. He will also follow-up with his primary care provider. Return instructions to the emergency department were reviewed. Patient and agreeable to the plan. Disposition is discharged home in stable condition. History & Record Review Discussion w/independent historian: Patient Discharge Plan Triage Chief Complaint: Abscess ED Provider: Aurelio Kang Dx/Rx/DC Orders Clinical Impression: Scrotal abscess, History of diabetes mellitus, type II Instructions: ED Abscess Antibiotic Treatment Only Prescriptions: New sulfamethoxazole-trimethoprim [Bactrim DS] 800-160 mg tablet 1 tab PO BID 10 Days Qty: 20 0RF doxycycline monohydrate 100 mg capsule 100 mg PO BID Qty: 20 0RF hydrocodone-acetaminophen 5-325 mg tablet 1 tab PO Q6H PRN (Reason: pain) 3 Days Qty: 12 0RF No Action (DME) blood sugar diagnostic Strip See Rx Instructions .Route Rx Instructions: As directed epinephrine [EpiPen] 0.3 mg/0.3 mL auto-injector 0.3 mg IM ONCE Rx Instructions: as a single dose; may repeat once fenofibrate nanocrystallized 145 mg tablet 145 mg PO DAILY Humulin N NPH Insulin KwikPen 100 unit/mL (3 mL) insulin pen 30 unit subcut BID Rx Instructions: 38 units with breakfast, 38 units with supper. lisinopril 20 mg tablet 20 mg PO BID loratadine [Allergy Relief (loratadine)] 10 mg tablet 10 mg PO DAILY metformin 1,000 mg tablet 1,000 mg PO BIDWMEAL methocarbamol 500 mg tablet 500 mg PO BID sildenafil 100 mg tablet 100 mg PO DAILY PRN (Reason: sexual activity) Rx Instructions: administer 30 minutes to 4 hours before activity tirzepatide 12.5 mg/0.5 mL pen injector 12.5 mg subcut MO dextroamphetamine-amphetamine 30 mg capsule,extended release 24hr 30 mg PO DAILY pantoprazole 40 mg tablet,delayed release (DR/EC) 40 mg PO DAILY PRN (Reason: gerd) albuterol sulfate 90 mcg/actuation HFA aerosol inhaler 2 puff inhalation Q6H PRN (Reason: shortness of breath or wheezing) Qty: 8.5 11RF albuterol sulfate 2.5 mg /3 mL (0.083 %) solution for nebulization 2.5 mg inhalation Q4H PRN (Reason: shortness of breath or wheezing) Qty: 180 6RF Breztri Aerosphere 160-9-4.8 mcg/actuation HFA aerosol inhaler 2 inh inhalation BID Qty: 10.7 3RF ipratropium-albuterol 0.5 mg-3 mg(2.5 mg base)/3 mL solution for nebulization 3 ml inhalation 6XD PRN (Reason: shortness of breath or wheezing) Qty: 180 3RF montelukast 10 mg tablet 10 mg PO DAILY Qty: 90 3RF ropinirole 1 mg tablet 2 mg PO DAILY Qty: 60 11RF Rx Instructions: Takes 1mg 3 hours prior to bed and 1mg at HS Primary Care Provider: Alysha Price Referrals: Paulo Buchanan MD [Med Staff - Active Staff] - 2 Days for wound check Alysha Price, CPA TAX-C [Primary Care Provider] - Activity Restrictions/Additional Instructions: Antibiotics as directed. Return with fever, increased swelling of scrotum, new or worsening symptoms. Print Language: Telugu Disposition Disposition: Home, Self Care
[2024-03-19] MEDS: Doxycycline 100 MG CAPSULE PO (20:53)
[2024-03-19] MEDS: HYDROcodone Bitartrate/Apap 5/325 Tablet PO (20:53)
[2024-03-19] MEDS: Smz/Tmp Ds Tablet 1 TABLET PO (20:53)
== END 2024-03-19 21:26 | disposition home or self-care (01) ==
LOC: ED 20:46
PROVIDERS: Emergency Provider Emergency Medicine; PCP Nurse Practitioner Family; Referring Provider Emergency Medicine; Visit Provider Emergency Medicine
DX: N49.2 Inflammatory disorders of scrotum (principal); Z79.4 Long term (current) use of insulin; E11.9 Type 2 diabetes mellitus without complications; I10 Essential (primary) hypertension; E78.00 Pure hypercholesterolemia, unspecified; G47.33 Obstructive sleep apnea (adult) (pediatric); Z99.89 Dependence on other enabling machines and devices; Z79.899 Other long term (current) drug therapy; Z79.84 Long term (current) use of oral hypoglycemic drugs; K21.9 Gastro-esophageal reflux disease without esophagitis; J45.909 Unspecified asthma, uncomplicated; Z79.51 Long term (current) use of inhaled steroids; G25.81 Restless legs syndrome
CPT/HCPCS: 99282

== ENCOUNTER → 2024-03-31 | Outpatient (CLI) | payer OTHER, SELFPAY | END | disposition home or self-care (01) | LOC: LABSPEC 15:43 | PROVIDERS: PCP Nurse Practitioner Family; Referring Provider Nurse Practitioner; Visit Provider Nurse Practitioner | DX: N49.2 Inflammatory disorders of scrotum (principal) | CPT/HCPCS: 87086 ==

== ENCOUNTER 2024-06-25 05:39 | Day surgery (SDC) | payer OTHER, SELFPAY ==
--- NOTE | 2024-06-11 08:41 | PAT.ANE_ITS ---
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 When Was Last Pacemaker Check QUESTION #4 FULL TEXT: You/Your Family Experience fever (hyperthermia) with Anesthesia Last Oral Intake Last Oral intake: Last Oral Intake NPO since Meds taken in AM with sips of water? Meds patient instructed to take am of surgery PONV PONV - landscape architect: PONV - landscape architect Female No 06/11/24 08:28 HX of Motion Sickness No 06/11/24 08:28 HX of N/V After Surgery No 06/11/24 08:28 Non-Smoker Yes 06/11/24 08:28 Duration of Surgery greater Yes 06/11/24 08:28 than 60 minutes Number of Risk Factors 2 06/11/24 08:28 PONV Score Moderate Risk 06/11/24 08:28 Height & Weight Height & Weight: Anesthesia: Height & Weight Height 5 ft 10 in 03/19/24 19:53 Respiratory Assessment Respiratory Assessment - landscape architect: Respiratory Tract Infection Hx - landscape architect Hx Respiratory Tract Infection No 06/11/24 08:28 STOP Sleep Apnea STOP Sleep Apnea - landscape architect: STOP Sleep Apnea - landscape architect Hx Hypertension Yes: CONTROLLED WITH MED 06/11/24 08:28 Hx Sleep Apnea Yes 06/11/24 08:28 CPAP Yes 06/11/24 08:28 BIPAP No 06/11/24 08:28 Do you snore loudly (louder than talking or can be heard Do you often feel tired/ fatigued/ sleepy during daytime? Has anyone observed you stop breathing during sleep? STOP Results Positive 06/11/24 08:28 QUESTION #5 FULL TEXT : Do you snore loudly (louder than talking or can be heard through closed doors)? 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 Specify any problems Hx of Preganancy in last 3 N/A 06/11/24 08:28 Months Nurse Filling Out Transfusion DSCHRIBER 06/11/24 08:28 & Questions: Date: 06/11/24 06/11/24 08:28 Time: 08:29 06/11/24 08:28 Patient unable to answer at this time (ie. confused, unrespo /Reproduction History /Reproductive History - landscape architect: /Reproductive Hx- landscape architect Hx Now No 06/11/24 08:28 Gestational Age (in weeks): EDC: Hx Hx Para Hx Section SAB No 06/11/24 08:28 PFS Medical History (Updated 06/11/24 @ 08:33 by Rosemary Mary) Dietary restriction Abrasion Loss of hearing Broken tooth Wears glasses ADHD MRSA infection Gout Insulin dependent diabetes mellitus Fatty liver High cholesterol History of hiatal hernia Restless legs GERD (gastroesophageal reflux disease) CPAP (continuous positive airway pressure) dependence Leg cramps Non-smoker Cardiology follow-up encounter Arthrosis of right acromioclavicular joint Hypertension Impingement of right shoulder Right shoulder pain NORA (obstructive sleep apnea) Asthma Home Medications ?Medication ?Instructions ?Recorded ?Last Taken ?Type blood sugar diagnostic 09/18/22 Unknown History epinephrine 0.3 mg/0.3 mL 0.3 mg IM ONCE 09/18/22 Unkn own History injection, auto-injector (EpiPen) fenofibrate nanocrystallized 145 145 mg PO DAILY 09/18 Unknown History mg tablet insulin NPH isoph U-100 human 100 30 unit subcut BID 0 09/18/22 Unknown History unit/mL (3 mL) subcutaneous pen (Humulin N NPH U-100 Insulin KwikPen) lisinopril 20 mg tablet 20 mg PO BID 09/18/22 Unknow n History loratadine 10 mg tablet (Allergy 10 mg PO DAILY Unknown History Relief (loratadine)) metformin 1,000 mg tablet 1,000 mg PO BIDWMEAL 3 Unknown History methocarbamol 500 mg tablet 500 mg PO BID 09/18/22 Unk nown History sildenafil 100 mg tablet 100 mg PO DAILY PRN sexual a ctivity 09/18/22 Unknown History tirzepatide 12.5 mg/0.5 mL 12.5 mg subcut MO 09/18/22 Unknown History subcutaneous pen injector albuterol sulfate 2.5 mg/3 mL 2.5 mg (3 mL) inhalation Q4H PRN 03/17/24 Unknown Rx (0.083 %) solution for nebulization shortness of breat h or wheezing #180 mL albuterol sulfate 90 mcg/actuation 2 puff inhalation Q 6H PRN 03/17/24 Unknown Rx aerosol inhaler shortness of breath or wheez ing #8.5 grams budesonide 160 mcg-glycopyr 9 2 inh inhalation BID #10 .7 grams 03/17/24 Unknown Rx mcg-formot 4.8 mcg/actuation HFA inhaler (Breztri Aerosphere) ipratropium 0.5 mg-albuterol 3 mg 3 ml inhalation 6XD PRN shortness 03/17/24 Unknown Rx (2.5 mg base)/3 mL nebulization of breath or wheezing #180 mL soln montelukast 10 mg tablet 10 mg PO DAILY #90 tabs 05/06 Unknown Rx pantoprazole 40 mg tablet,delayed 40 mg PO DAILY PRN g erd 03/17/24 Unknown History release lisdexamfetamine 70 mg capsule 70 mg PO DAILY 06/11/24 Unknown History ropinirole 1 mg tablet 2 mg PO QHS 06/11/24 Unknown History Allergy/AdvReac Type Severity Reaction Status Date / Time Fish Containing Products Allergy Severe Anaphylaxis Verified 06/11/24 08:22 peanut Allergy Severe Anaphylaxis Verified 06/11/24 08:22 coconut Allergy Mild Hives Verified 06/11/24 08:22 grass pollen Allergy Mild Other Verified 06/11/24 08:22 Iodinated Contrast Media Allergy Mild unknown Verified 06/11/24 08:22 mold Allergy Mild Other Verified 06/11/24 08:22 Family History Father Asthma Sister Chronic bronchitis Surgical History History of incision and drainage History of surgery on lower extremity History of hip surgery Social History Smoking Status: Never smoker Audit: Pertinent Findings Pertinent Findings EKG Perinent findings: 03/18/2024. Normal sinus rhythm 70 bpm. Left posterior fascicular block. Possible inferior infarct, age undetermined. Recommendation Anesthesia Recommendation Anesthesia recommendation: OPTIMIZED for anesthesia
[2024-06-20 14:29] LABS: Hematocrit 42.3 % (40-54); Hemoglobin 14.9 g/dL (13.0-16.5); Mean Corp Hgb Conc 35.2 g/dL (32-36); Mean Corpuscular Hgb 28.7 pg (27.0-32.0); Mean Corpuscular Volume 81.5 fL (80-94); Mean Platelet Vol. 9.6 fl (6.2-12.0); Platelet Count 326 K/mm3 (150-450); RBC Distribution Width CV 12.4 % (11.6-14.6); RBC Distribution Width SD 36.8 fl (35.1-43.9); Red Blood Count 5.19 M/mm3 (4.6-6.2); White Blood Count 9.6 K/mm3 (4.4-11.0)
[2024-06-20 14:50] LABS: Hemoglobin A1c 9.3 % (<=5.6)
[2024-06-20 14:59] LABS: Anion Gap 12 (5-15); BUN 21 mg/dL (4-19); BUN/Creat Ratio 19.1 RATIO (10-20); Carbon Dioxide 21.4 mmol/L (21.0-32.0); Chloride 102 mmol/L (98-108); Creatinine, Serum 1.11 mg/dL (0.70-1.20); EST Glomerular Filtration Rate 87 (>60); Glucose 299 mg/dL (70-99); Potassium 4.5 mmol/L (3.3-5.1); Sodium Level 135 mmol/L (133-145)
[2024-06-25] VITALS (10 sets, daily range): BP systolic 99–111; BP diastolic 55–68; PULSE 63–78; RESP 14–18; TEMP 35.9–36.5; O2SAT 93–98
[2024-06-25] MEDS: Lactated Ringers 1,000 ML 15 ML IV ×2 (06:26→09:18)
--- NOTE | 2024-06-25 06:34 | PCM.PRE.AN2 ---
ASA Classification* ASA Classification ASA Classification: 2 Assessment & Plan Anesthesia* Anesthesia Assessment Anesthesia Assessment: Discussed sedation and/or anesthesia options, risks, benefits, and alternatives with patient/parents/legal guardian/POA. Questions invited. The patient/parents/legal guardian/POA seems to understand and agrees to proceed with anesthesia plan. Reviewed the physical assessment, medical history, allergy history and patient home medications list prior to surgery/procedure/anesthetic and documented any changes. Performed airway and anesthesia risk assessments. Anesthesia Type Anesthesia Type: General and Block (Patient is consented for interscalene block.) History Source History Obtained from:: Patient and Chart Anesthesia Focused Assessment* Temperature: 97.6 F Pulse Rate: 63 Blood Pressure: 111/63 Respiratory Rate: 17 Pulse Ox: 98 Oxygen Delivery Method: Room Air Airway Assessment Mouth opens: >3 cm Mallampati Score: I Teeth Condition: Chipped/Broken (Patient has 1 broken molar on the right lower.) and Missing (Patient has several missing teeth. Rest are tight.) Neck Range of motion (ROM): Full ROM Focused Labs Anesthesia Preop lab: CBC WBC 9.6 K/mm3 (4.4-11.0) 06/20/24 14:06/20/24 RBC 5.19 M/mm3 (4.6-6.2) 06/20/24 14:06/20/24 Hgb 14.9 g/dL (13.0-16.5) 06/20/24 14:06/20/24 Hct 42.3 % (40-54) 06/20/24 14:06/20/24 Plt Count 326 K/mm3 (150-450) 06/20/24 14:01 06/20/24 CHEMISTRY Potassium 4.5 mmol/L (3.3-5.1) 06/20/24 14:01 06/20/24 Sodium 135 mmol/L (133-145) 06/20/24 14:01 06/20/24 BUN 21 mg/dL (4-19) H 06/20/24 14:01 06/20/24 Creatinine 1.11 mg/dL (0.70-1.20) 06/20/24 14:01 06/20/24 Glucose 299 mg/dL (70-99) H 06/20/24 14:01 06/20/24 POC Glucose 213 mg/dL (74-106) H 06/25/24 06:05 06/25/24 COAG Pre-Assessment Diagnosis/Proposed Procedure Planned Operative Procedure(s): RIGHT SHOULDER ARTHROSCOPY SUBCROMIAL DECOMPRESSION DISTAL CLAVICLE EXCISION Anesthesia History 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 When Was Last Pacemaker Check QUESTION #4 FULL TEXT: You/Your Family Experience fever (hyperthermia) with Anesthesia Last Oral Intake Last Oral intake: Last Oral Intake NPO since 00:00 06/25/24 06:22 Meds taken in AM with sips of Yes 06/25/24 06:22 water? 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 Female No 06/11/24 08:28 HX of Motion Sickness No 06/11/24 08:28 HX of N/V After Surgery No 06/11/24 08:28 Non-Smoker Yes 06/11/24 08:28 Duration of Surgery greater Yes 06/11/24 08:28 than 60 minutes Number of Risk Factors 2 06/11/24 08:28 PONV Score Moderate Risk 06/11/24 08:28 Height & Weight Height & Weight: Anesthesia: Height & Weight Height 5 ft 10 in 06/25/24 06:22 Weight: 12.8 kg 06/25/24 06:22 Body Mass Index (BMI) 4.0 06/25/24 06:22 Respiratory Assessment Respiratory Assessment - hob machine operator: Respiratory Tract Infection Hx - hob machine operator Hx Respiratory Tract Infection No 06/11/24 08:28 STOP Sleep Apnea STOP Sleep Apnea - hob machine operator: STOP Sleep Apnea - hob machine operator Hx Hypertension Yes: CONTROLLED WITH MED 06/11/24 08:28 Hx Sleep Apnea Yes 06/11/24 08:28 CPAP Yes 06/11/24 08:28 BIPAP No 06/11/24 08:28 Do you snore loudly (louder than talking or can be heard Do you often feel tired/ fatigued/ sleepy during daytime? Has anyone observed you stop breathing during sleep? STOP Results Positive 06/11/24 08:28 QUESTION #5 FULL TEXT : Do you snore loudly (louder than talking or can be heard through closed doors)? 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 Specify any problems Hx of Preganancy in last 3 N/A 06/11/24 08:28 Months Nurse Filling Out Transfusion DSCHRIBER 06/11/24 08:28 & Questions: Date: 06/11/24 06/11/24 08:28 Time: 08:29 06/11/24 08:28 Patient unable to answer at this time (ie. confused, unrespo /Reproduction History /Reproductive History - hob machine operator: /Reproductive Hx- hob machine operator Hx Now No 06/11/24 08:28 Gestational Age (in weeks): EDC: Hx Hx Para Hx Section SAB No 06/11/24 08:28 Active Medications Active Medications: Current Medications Generic Name Dose Route Start Last Admin Trade Name Freq PRN Reason Stop Dose Admin Cefazolin Sodium 2 gm/ Sodium 110 mls @ 150 mls/hr 06/25/24 07:30 Chloride IV 06/25/24 08:13 INTRAOP ONE Lactated Ringer's 1,000 mls @ 15 mls/hr 06/25/24 06:00 06/25/24 06:26 IV 15 mls/hr .Q48H DONNY Administration PFSH Medical History Dietary restriction Abrasion Loss of hearing Broken tooth Wears glasses ADHD MRSA infection Gout Insulin dependent diabetes mellitus Fatty liver High cholesterol History of hiatal hernia Restless legs GERD (gastroesophageal reflux disease) CPAP (continuous positive airway pressure) dependence Leg cramps Non-smoker Cardiology follow-up encounter Arthrosis of right acromioclavicular joint Hypertension Impingement of right shoulder Right shoulder pain NORA (obstructive sleep apnea) Asthma Home Medications ?Medication ?Instructions ?Recorded ?Last Taken ?Type blood sugar diagnostic 09/18/22 Unknown History epinephrine 0.3 mg/0.3 mL 0.3 mg IM ONCE 09/18/22 Unknown History injection, auto-injector (EpiPen) fenofibrate nanocrystallized 145 145 mg PO DAILY 09/18/22 06/24/24 History mg tablet insulin NPH isoph U-100 human 100 30 unit subcut BID 09/18/22 06/24/24 History unit/mL (3 mL) subcutaneous pen (Humulin N NPH U-100 Insulin KwikPen) lisinopril 20 mg tablet 20 mg PO BID 09/18/22 06/24/24 History loratadine 10 mg tablet (Allergy 10 mg PO DAILY 09/18/22 06/25/24 History Relief (loratadine)) metformin 1,000 mg tablet 1,000 mg PO BIDWMEAL 09/18/22 06/24/24 History methocarbamol 500 mg tablet 500 mg PO BID 09/18/22 06/24/24 History sildenafil 100 mg tablet 100 mg PO DAILY PRN sexual activity 09/18/22 06/24/24 17:00 History tirzepatide 12.5 mg/0.5 mL 12.5 mg subcut MO 09/18/22 06/09/24 History subcutaneous pen injector albuterol sulfate 2.5 mg/3 mL 2.5 mg (3 mL) inhalation Q4H PRN 03/17/24 Unknown Rx (0.083 %) solution for nebulization shortness of breath or wheezing #180 mL albuterol sulfate 90 mcg/actuation 2 puff inhalation Q6H PRN 03/17/24 Unknown Rx aerosol inhaler shortness of breath or wheezing #8.5 grams budesonide 160 mcg-glycopyr 9 2 inh inhalation BID #10.7 grams 03/17/24 06/24/24 Rx mcg-formot 4.8 mcg/actuation HFA inhaler (Breztri Aerosphere) ipratropium 0.5 mg-albuterol 3 mg 3 ml inhalation 6XD PRN shortness 03/17/24 Unknown Rx (2.5 mg base)/3 mL nebulization of breath or wheezing #180 mL soln montelukast 10 mg tablet 10 mg PO DAILY #90 tabs 03/17/24 06/24/24 Rx lisdexamfetamine 70 mg capsule 70 mg PO DAILY 06/11/24 06/24/24 History ropinirole 1 mg tablet 2 mg PO QHS 06/11/24 06/24/24 History oxycodone-acetaminophen 5 mg-325 1 tab PO Q4H PRN pain 3 days #20 06/25/24 Unknown Rx mg tablet (Endocet) tabs Allergy/AdvReac Type Severity Reaction Status Date / Time Fish Containing Products Allergy Severe Anaphylaxis Verified 06/25/24 05:51 peanut Allergy Severe Anaphylaxis Verified 06/25/24 05:51 coconut Allergy Mild Hives Verified 06/25/24 05:51 grass pollen Allergy Mild Other Verified 06/25/24 05:51 Iodinated Contrast Media Allergy Mild unknown Verified 06/25/24 05:51 mold Allergy Mild Other Verified 06/25/24 05:51 Family History Father Asthma Sister Chronic bronchitis Surgical History History of incision and drainage History of surgery on lower extremity History of hip surgery Social History Smoking Status: Never smoker Review of Systems (Anesthesia) ROS Narrative System reviewed and no additional complaints, except as documented. Physical Exam Resp clear to auscultation bilaterally
--- NOTE | 2024-06-25 06:57 | PCM.HP.STD ---
HPI - General HPI Narrative FLORA FUENTES, is a 38 M who presents for right shoulder arthroscopy, subacromial decompression, distal clavicle excision. no changes to h and p. rab, post op instructions, narcotic counselling. again discussed hg a1c and risks of infection or other being elevated. patient understands, wishes to proceed. right shoulde marked. plan for block. ok to proceed. MR#: [id number] Acct: [id number] Name: FLORA FUENTES Rep #: [id number] : 1985 Provider: Dr. Torrey Flannery MD Age/Sex: 38/M Location: [facility] [place] Status: Signed Intake Vital Signs 06/18/2414:28 11/29/2412:03 Height 5 ft 10 in 5 ft 10 in Weight: 242 lb BMI 34.7 Intake Visit Reasons: RIGHT SHOULDER Accompanied by: Self Is patient in pain?: Yes Pain scale (1-10): 6 Allergies Fish Containing Products Allergy (Severe, Verified 11/30/23 13:02) Anaphylaxispeanut Allergy (Severe, Verified 11/30/23 13:02) Anaphylaxiscoconut Allergy (Mild, Verified 11/30/23 13:02) Hivesgrass pollen Allergy (Mild, Verified 11/30/23 13:02) OtherIodinated Contrast Media Allergy (Mild, Verified 11/30/23 13:02) unknownmold Allergy (Mild, Verified 11/30/23 13:02) Other Medications ?Medication ?Instructions ?Recorded ?Confirmed ?Type allopurinol 300 mg tablet 300 mg PO DAILY 09/18/22 11/30/23 History blood sugar diagnostic 09/18/22 11/30/23 History dextroamphetamine-amphetamine ER 25 mg PO QAM 09/18/22 11/30/23 History 25 mg 24hr capsule,extend release (Adderall XR) epinephrine 0.3 mg/0.3 mL 0.3 mg IM ONCE 09/18/22 11/30/23 History injection, auto-injector (EpiPen) fenofibrate nanocrystallized 145 145 mg PO DAILY 09/18/22 11/30/23 History mg tablet glimepiride 2 mg tablet 4 mg PO BID 09/18/22 11/30/23 History insulin NPH isoph U-100 human 100 30 unit subcut BID 09/18/22 11/30/23 History unit/mL (3 mL) subcutaneous pen (Humulin N NPH U-100 Insulin KwikPen) ipratropium 0.5 mg-albuterol 3 mg 3 ml inhalation 6XD 09/18/22 11/30/23 History (2.5 mg base)/3 mL nebulization soln lisinopril 20 mg tablet 20 mg PO BID 09/18/22 11/30/23 History loratadine 10 mg tablet (Allergy 10 mg PO DAILY 09/18/22 11/30/23 History Relief (loratadine)) metformin 1,000 mg tablet 1,000 mg PO BIDWMEAL 09/18/22 11/30/23 History methocarbamol 500 mg tablet 500 mg PO BID 09/18/22 11/30/23 History naltrexone 50 mg tablet 12.5 mg PO DAILY 09/18/22 11/30/23 History olopatadine 0.1 % eye drops 1 drp ophthalmic (eye) BID 09/18/22 11/30/23 History sildenafil 100 mg tablet 100 mg PO DAILY PRN sexual activity 09/18/22 11/30/23 History tirzepatide 12.5 mg/0.5 mL 12.5 mg subcut QWEEK 09/18/22 11/30/23 History subcutaneous pen injector triamcinolone acetonide 55 mcg 2 spray intranasal DAILY 09/18/22 11/30/23 History nasal spray aerosol (Nasacort) montelukast 10 mg tablet 10 mg PO DAILY #90 tabs 12/11/22 11/30/23 Rx albuterol sulfate 2.5 mg/3 mL 2.5 mg (3 mL) inhalation Q4H PRN 12/20/22 11/30/23 Rx (0.083 %) solution for nebulization shortness of breath or wheezing #180 mL budesonide 160 mcg-glycopyr 9 2 inh inhalation BID #10.7 grams 12/20/22 11/30/23 Rx mcg-formot 4.8 mcg/actuation HFA inhaler (Breztri Aerosphere) pantoprazole 40 mg tablet,delayed 40 mg PO DAILY #14 tabs 01/08/23 11/30/23 Rx release albuterol sulfate 90 mcg/actuation 2 puff inhalation Q6H PRN 07/10/23 11/30/23 Rx aerosol inhaler shortness of breath or wheezing #8.5 grams ropinirole 1 mg tablet 2 mg (2 x 1 mg) PO DAILY #60 tabs 10/11/23 11/30/23 Rx PFSH Medical History (Updated 11/30/23 @ 13:22 by Torrey Flannery MD) Arthrosis of right acromioclavicular joint Type 2 diabetes mellitus Hypertension Impingement of right shoulder Right shoulder pain NORA (obstructive sleep apnea) Asthma Surgical History History of surgery on lower extremity History of hip surgery Family History Father AsthmaSister Chronic bronchitis Social History Smoking Status: Never smoker HPI RIGHT SHOULDER Details: This documentation accurately reflects the service provided and the decisions made by me, Dr. Torrey Flannery MD 11/30/23 1301. Part of today?s visit was documented by [ ], acting as scribe. FLORA FUENTES is a 38 year old M here today for follow-up right shoulder pain. The patient had an injection about 3 months ago it helped for 6 weeks pain has returned on the lateral aspect posteriorly as well as at the clavicle with some clicking when reaching across the body. The patient is interested in a more definitive surgical solution. 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 Ortho Exam General General: Yes no acute distress Neurologic: Yes alert and Yes oriented x3 Psychologic: Yes reasonable and appropriate Right Shoulder Skin/Wound: Yes CDI, No ecchymosis, No erythema and No swelling Testing: Positive Hawkin's, Neer's, TTP AC Joint, AROM-Forward Elevation 0-180, AROM-External Rotation at side 0-60 and cross arm SHOULDER: normal motor and sens to ax nerve, and MRU and AIN/PIN strength fe and er 5/5. good rad pulse Supplemental Info [facility] Imaging Services [address] [place] [address] Upper Ext Joint Only(Routine) MR#: [id number] Acct: [id number] Name: FLORA FUENTES Rep #: [id number] : 1985 M 37 From: Evan Ferrell MD PCP: SUNNI CHUN Status: REG CLI Study: Upper Ext Joint Only(Routine) Date of Exam: 02/06/23 Exam# [id number] Ordering Dr: Torrey Flannery MD STUDY: MRI RIGHT SHOULDER REASON FOR EXAM: Male, 37 years old. Pain with limited range of motion. Evaluate for labral tear. TECHNIQUE: Standardized fat and water weighted pulse sequences were obtained in all 3 orthogonal planes. COMPARISON: None. FINDINGS: Minimal supraspinatus and infraspinatus tendinosis without a partial-thickness or full-thickness tear (coronal series 6 images 3-12). Mild subscapularis tendinosis without a partial thickness or full thickness tear (axial series 3 images 10-14). Normal teres minor tendon. Normal supraspinatus muscle. Normal infraspinatus muscle. Normal subscapularis muscle. Normal teres minor muscle. Small glenohumeral joint effusion (axial series 3 image 13). Normal humeral head and visualized proximal humerus. Normal biceps labral complex. Normal intracapsular long biceps tendon. Normal labrum. Normal capsulo- ligamentous complex. Normal rotator interval. Bone marrow edema in the distal clavicle and adjacent acromion with mild AC joint hypertrophy, medial to lateral downsloping of the acromion and mild narrowing of the subacromial space (coronal series 6 images 8-16). There is a Type II morphology (curved), with a neutral orientation. There is no subacromial-subdeltoid bursal fluid. Normal visualized coracohumeral and coracoacromial ligaments. Normal quadrilateral space. Normal axillary space. Normal deltoid muscle. Normal trapezius muscle. MRI/Upper Ext Joint Only(Routine) IMPRESSION: Supraspinatus, infraspinatus and subscapularis tendinosis without a partial-thickness or full-thickness tear. Reactive bone marrow edema in the distal clavicle and adjacent acromion. Mild medial to lateral downsloping of the acromion with minimal AC joint hypertrophy resulting in narrowing of the subacromial space. Small glenohumeral joint effusion. Electronically Signed: Evan Ferrell MD at 10:34 EST Reading Location ID and State: [facility] / [place] , Service support , Coding Level of Care Code Off vis,est,level 4 Diagnoses Impingement of right shoulder M25.811 Right shoulder pain M25.511 Arthrosis of right acromioclavicular joint M19.011 Assessment and Plan Assessment and Plan (1) Impingement of right shoulder: Status: Acute Plan: 38-year-old man right shoulder pain signs and symptoms MRI evidence of impingement syndrome as well as AC joint arthrosis with pain at the distal clavicle and a positive cross body adduction test. Explained the diagnosis prognosis different treatment options available include but not limited to rest ice anti-inflammatories active modifications repeat cortisone injection physical therapy and surgery. In this case surgery be in the form of right shoulder arthroscopy, subacromial decompression, distal clavicle excision. Explained the risks of that instability damage other structures anesthetic risks and other complications. The patient does have diabetes with good control of the glucose more recently that may increase the chance of infection or other complications. The patient understands wished to go ahead signed the consent form for surgery today's visit. May be delayed due to the IV fluid shortage currently. Pros and cons risks and benefits were discussed with the patient including but not limited to infection, pain, stiffness, bleeding, damage to surrounding structures, neurovascular injury, recurrence or retear, failure or wear of hardware or fixation, instability, fracture, deep vein thrombosis and pulmonary embolism, anesthetic risks, , patient dissatisfaction, need for further surgery and other risks. Patient understood and wished to proceed with surgery, and signed the informed consent documentation. (2) Right shoulder pain: Status: Acute (3) Arthrosis of right acromioclavicular joint: Status: Acute Plan Details Goals & Barriers: Goals Decrease spasm Improve intersegmental motion Decrease pain [facility] Medical History Dietary restriction Abrasion Loss of hearing Broken tooth Wears glasses ADHD MRSA infection Gout Insulin dependent diabetes mellitus Fatty liver High cholesterol History of hiatal hernia Restless legs GERD (gastroesophageal reflux disease) CPAP (continuous positive airway pressure) dependence Leg cramps Non-smoker Cardiology follow-up encounter Arthrosis of right acromioclavicular joint Hypertension Impingement of right shoulder Right shoulder pain NORA (obstructive sleep apnea) Asthma Home Medications ?Medication ?Instructions ?Recorded ?Last Taken ?Type blood sugar diagnostic 09/18/22 Unknown History epinephrine 0.3 mg/0.3 mL 0.3 mg IM ONCE 09/18/22 Unknown History injection, auto-injector (EpiPen) fenofibrate nanocrystallized 145 145 mg PO DAILY 09/18/22 06/24/24 History mg tablet insulin NPH isoph U-100 human 100 30 unit subcut BID 09/18/22 06/24/24 History unit/mL (3 mL) subcutaneous pen (Humulin N NPH U-100 Insulin KwikPen) lisinopril 20 mg tablet 20 mg PO BID 09/18/22 06/24/24 History loratadine 10 mg tablet (Allergy 10 mg PO DAILY 09/18/22 06/25/24 History Relief (loratadine)) metformin 1,000 mg tablet 1,000 mg PO BIDWMEAL 09/18/22 06/24/24 History methocarbamol 500 mg tablet 500 mg PO BID 09/18/22 06/24/24 History sildenafil 100 mg tablet 100 mg PO DAILY PRN sexual activity 09/18/22 06/24/24 17:00 History tirzepatide 12.5 mg/0.5 mL 12.5 mg subcut MO 09/18/22 06/09/24 History subcutaneous pen injector albuterol sulfate 2.5 mg/3 mL 2.5 mg (3 mL) inhalation Q4H PRN 03/17/24 Unknown Rx (0.083 %) solution for nebulization shortness of breath or wheezing #180 mL albuterol sulfate 90 mcg/actuation 2 puff inhalation Q6H PRN 03/17/24 Unknown Rx aerosol inhaler shortness of breath or wheezing #8.5 grams budesonide 160 mcg-glycopyr 9 2 inh inhalation BID #10.7 grams 03/17/24 06/24/24 Rx mcg-formot 4.8 mcg/actuation HFA inhaler (Breztri Aerosphere) ipratropium 0.5 mg-albuterol 3 mg 3 ml inhalation 6XD PRN shortness 03/17/24 Unknown Rx (2.5 mg base)/3 mL nebulization of breath or wheezing #180 mL soln montelukast 10 mg tablet 10 mg PO DAILY #90 tabs 03/17/24 06/24/24 Rx lisdexamfetamine 70 mg capsule 70 mg PO DAILY 06/11/24 06/24/24 History ropinirole 1 mg tablet 2 mg PO QHS 06/11/24 06/24/24 History Allergy/AdvReac Type Severity Reaction Status Date / Time Fish Containing Products Allergy Severe Anaphylaxis Verified 06/25/24 05:51 peanut Allergy Severe Anaphylaxis Verified 06/25/24 05:51 coconut Allergy Mild Hives Verified 06/25/24 05:51 grass pollen Allergy Mild Other Verified 06/25/24 05:51 Iodinated Contrast Media Allergy Mild unknown Verified 06/25/24 05:51 mold Allergy Mild Other Verified 06/25/24 05:51 Family History Father Asthma Sister Chronic bronchitis Surgical History History of incision and drainage History of surgery on lower extremity History of hip surgery Social History Smoking Status: Never smoker Vital Signs Vital Signs Vital Signs: 06/25/24 06:22 06/25/24 06:22 06/25/24 06:43 Temperature 97.6 F L 97.6 F L Temperature Source Temporal Pulse Rate 63 63 Respiratory Rate 17 17 Respiratory Pattern Normal Blood Pressure 111/63 111/63 Blood Pressure Mean 79 Blood Pressure Source Monitor Blood Pressure Position Semi-Fowlers Blood Pressure Location Right Arm Pulse Ox 98 98 Oxygen Delivery Method Room Air Room Air Weight Weight: 28 lb 3.507 oz Body Mass Index (BMI) 4.0 Results Lab / Micro Data 06/20/24 14:01 06/20/24 14:01
[2024-06-25] MEDS: Epinephrine (1 mg/ml) 1 MG/ML VIAL (07:40)
[2024-06-25] MEDS: Cefazolin 2 GM in 0.9% Normal Saline (100mL Bag) 100 ML IV (07:50)
--- NOTE | 2024-06-25 08:44 | OP.PCM_ITS ---
Problems Associated Problem List Diagnoses (1) Arthrosis of right acromioclavicular joint: (2) Impingement of right shoulder: (3) Right shoulder pain: Operative Report (Standard) Operative Information Date of Procedure: 06/25/24 Pre-Operative Diagnosis: Right shoulder impingement and AC joint arthrosis Post-Operative Diagnosis: Same Surgery/Procedure Performed: Right shoulder arthroscopy, subacromial decompression, distal clavicle excision merchandising manager: No Type of Anesthesia: Block,Regional and General RN Documented Start/Stop Times: Operation Date: 06/25/24 07:30 Case Time Into Pre-Op 06/25/24 05:54 Out of Pre-Op 06/25/24 07:18 Anesthesia Start 06/25/24 07:40 Into Room 06/25/24 07:40 Procedure Start 06/25/24 08:05 Procedure Start Time: 08:05 Procedure Stop Time: 08:42 Select all DRAINS/GRAFTS/IMPLANTS that apply: None Estimated Blood Loss: 25 Specimen collected: No Description of surgery: Patient brought to the operating room theater. Placed supine on the table. General anesthesia induced. 2 g IV Ancef ministered prior to the start of the procedure. SCDs on the legs. All bony prominences padded. Patient transferred lateral decubitus right side up beanbag positioner axillary roll used. 10 pounds of inline traction with the arm in 45 degrees of abduction. Upper extremity prepped and draped in fashion allowing over 3 minutes drying time prior to draping. Preoperative timeout performed to confirm the site patient and the surgery. Began by inserting the arthroscope through a standard posterior arthroscopy portal into the intra-articular portion of the right shoulder. Did a full diagnostic arthroscopy. Cartilage on the glenoid and humeral head was normal. Slight fraying of the anterior labrum. Subscapularis as well as the rest the rotator cuff tendons appeared normal. Normal long head of the biceps. Normal biceps root attachment no SLAP tear. Axillary recess entered no loose bodies. Arthroscopy pictures taken and saved onto the system throughout the case. I made a standard inside-out spinal needle localized portal through the rotator interval just posterior to the biceps tendon. Next I inserted the arthroscope into the space. There is moderate amount of bursitis. I made a lateral accessory portal. I used a shaving instrument to remove the bursa. Probed the superior aspect of the rotator cuff tendon no obvious tears noted. No change from the MRI findings. There is quite a tight subacromial space. I used a high-speed bur to perform a subacromial decompression for 5 mm to the distal clavicle joint. I identified the distal clavicle. I used a combination of the lateral and anterior portals to perform a distal clavicle excision for 4 mm down to flat smooth margins. I ensured not to violate the superior capsule. Any bone dust remaining irrigated from the shoulder. Case terminated wound thoroughly irrigated. Wounds thoroughly cleaned with wet and dry dressing portals closed with 3-0 Monocryl suture. Skin cleaned with wet and dry dressing followed application of Steri-Strips Adaptic 4 x 4 gauze ABD dressing cloth tape and sling for the upper extremity. Patient woken up from the general anesthetic transferred off the operating table taken to postanesthetic care unit in stable condition. All sponge needle instrument counts were correct no complications. Plan for the patient discharge home according to day surgery criteria follow-up in the office next week gentle pendulums hand wrist and elbow exercises and no specific restrictions sling for [place]. cpt 80562, [id number] Surgical Findings: as above Complications Complications: No Admit VTE Documentation VTE Present on Admission: No VTE Mechan Device Prophylaxis: SCD's VTE Pharm Prophylaxis ordered?: No Reason prophylaxis not ordered: Treatment Not Indicated
--- NOTE | 2024-06-25 08:51 | EX.PCM.DISCH ---
Discharge Instructions Diet Discharge Diet: No restrictions Activity Discharge Activity: Return to Normal Activity Ice area for (Minutes): 10 Lifting Restrictions: no hevay lifting Additional Activity Instructions:: ok for pendulums, hand wrist elbow ROM as tolerated Dressing / Incision Call your doctor if your incision/area has: Continuous Slow Oozing, Sudden Increased Bleeding, Increased Pain/ Swelling, Increased Redness, Foul Smelling Discharge and Swelling at the incision site Call your doctor if you observe: Fever of 101 or Higher, Coldness, Increased Pain and Numbness or Tingling Change Dressing in: 2 days Cleanse incision/area with: Do not get Incision Wet Follow Up Care Test Results: Test results from this visit will be discussed in further detail at your follow-up appointment, if applicable. Discharge Plan Admission Attending Provider: Torrey Flannery Primary Care Provider: Alysha Price Instructions Patient Instructions: After Shoulder Arthroscopy Print Language: [place] Discharge Orders/Prescriptions Prescriptions: New oxycodone-acetaminophen [Endocet] 5-325 mg tablet 1 tab PO Q4H MDD 6 PRN (Reason: pain) 3 Days Qty: 20 0RF No Action (DME) blood sugar diagnostic Strip See Rx Instructions .Route Rx Instructions: As directed epinephrine [EpiPen] 0.3 mg/0.3 mL auto-injector 0.3 mg IM ONCE Rx Instructions: as a single dose; may repeat once fenofibrate nanocrystallized 145 mg tablet 145 mg PO DAILY Humulin N NPH Insulin KwikPen 100 unit/mL (3 mL) insulin pen 30 unit subcut BID Rx Instructions: 38 units with breakfast, 38 units with supper. lisinopril 20 mg tablet 20 mg PO BID loratadine [Allergy Relief (loratadine)] 10 mg tablet 10 mg PO DAILY metformin 1,000 mg tablet 1,000 mg PO BIDWMEAL methocarbamol 500 mg tablet 500 mg PO BID sildenafil 100 mg tablet 100 mg PO DAILY PRN (Reason: sexual activity) Rx Instructions: administer 30 minutes to 4 hours before activity tirzepatide 12.5 mg/0.5 mL pen injector 12.5 mg subcut MO albuterol sulfate 90 mcg/actuation HFA aerosol inhaler 2 puff inhalation Q6H PRN (Reason: shortness of breath or wheezing) Qty: 8.5 11RF albuterol sulfate 2.5 mg /3 mL (0.083 %) solution for nebulization 2.5 mg inhalation Q4H PRN (Reason: shortness of breath or wheezing) Qty: 180 6RF Breztri Aerosphere 160-9-4.8 mcg/actuation HFA aerosol inhaler 2 inh inhalation BID Qty: 10.7 3RF ipratropium-albuterol 0.5 mg-3 mg(2.5 mg base)/3 mL solution for nebulization 3 ml inhalation 6XD PRN (Reason: shortness of breath or wheezing) Qty: 180 3RF montelukast 10 mg tablet 10 mg PO DAILY Qty: 90 3RF lisdexamfetamine 70 mg capsule 70 mg PO DAILY ropinirole 1 mg tablet 2 mg PO QHS Rx Instructions: Takes 1mg 3 hours prior to bed and 1mg at HS Referrals / Follow Up: Alysha Price ENGINEER FISHING VESSEL-C [Primary Care Provider] - Disposition Disposition (needs filled in before D/C Order can be placed): Home, Self Care
[2024-06-25 08:58] LABS: Bedside Glucose 213 mg/dL (74-106)
--- NOTE | 2024-06-25 09:21 | PCM.POST.ANE ---
Anesthesia: Postop Eval I Current Vital Signs Temperature: 97.2 F Pulse Rate: 72 Blood Pressure: 104/68 Respiratory Rate: 14 Pulse Ox: 95 Oxygen Delivery Method: Room Air Assessment Airway patent: Yes Spontaneous unlabored respirations: Yes Mental status: Awake nausea: No Vomiting: No Anesthesia Complication: No Fluid Hydration Crystalloid volume administer (ml): 1,700 Total IV fluid infused: 1,700 Progress Note Anesthesia document: Postop Eval 1 completed: Yes
--- NOTE | 2024-06-25 09:42 | POSTOPAN2_ITS ---
Anesthesia Postop Eval I Sum Postop Eval Completion status Anesthesia document: Postop Eval 1 completed: Yes Anesthesia Postop Eval I Summary Anesthesia Postop Eval I Summary: Anesthesia Postop Eval I: Assessment Summary Airway patent Yes 06/25/24 09:21 JOB [email or web address] Spontaneous unlabored Yes 06/25/24 09:21 JOB SERVICE [email or web address].HBARR respirations Mental status Awake 06/25/24 09:21 JOB [email or web address] [email or web address].HBARR nausea No 06/25/24 09:21 JOB SERVICE [email or web address].HBARR Vomiting No 06/25/24 09:21 JOB [email or web address].HBARR Anesthesia Postop Eval I: Fluid Summary Crystalloid volume administer 1,700 06/25/24 09:21 JOB [email or web address].HBARR (ml) Colloids volume administered ( ml) Blood Product volume administered (ml) Total IV fluid infused 1,700 06/25/24 09:21 JOB SERVICE [email or web address].HBARR Anesthesia Postop Eval I: Summary Notes Anesthesia Complication No 06/25/24 09:21 JOB SERVICE [email or web address].HBARR Anesthesia Complication Comment: Post-operative progress note Anesthesia: Postop Eval II Evaluation Mental status: Awake and Calm Pain Level: 2 (The patient has a stiff neck from positioning. He actually says his shoulder feels okay.) nausea: No Vomiting: No Complications Anesthesia Complication: No
--- NOTE | 2024-06-25 09:42 | PCM.POSTANE2 ---
Anesthesia Postop Eval I Sum Postop Eval Completion status Anesthesia document: Postop Eval 1 completed: Yes Anesthesia Postop Eval I Summary Anesthesia Postop Eval I Summary: Anesthesia Postop Eval I: Assessment Summary Airway patent Yes 06/25/24 09:21 [email or web address] Spontaneous unlabored Yes 06/25/24 09:21 [email or web address] respirations Mental status Awake 06/25/24 09:21 [email or web address] nausea No 06/25/24 09:21 [email or web address] Vomiting No 06/25/24 09:21 [email or web address] Anesthesia Postop Eval I: Fluid Summary Crystalloid volume administer 1,700 06/25/24 09:21 [email or web address] (ml) Colloids volume administered ( ml) Blood Product volume administered (ml) Total IV fluid infused 1,700 06/25/24 09:21 [email or web address] Anesthesia Postop Eval I: Summary Notes Anesthesia Complication No 06/25/24 09:21 [email or web address] Anesthesia Complication Comment: Post-operative progress note Anesthesia: Postop Eval II Evaluation Mental status: Awake and Calm Pain Level: 2 (The patient has a stiff neck from positioning. He actually says his shoulder feels okay.) nausea: No Vomiting: No Complications Anesthesia Complication: No
== END 2024-06-25 10:58 | disposition home or self-care (01) ==
LOC: SDC 05:39 → AC 05:39
PROVIDERS: Anesthesiology; PCP Nurse Practitioner Family; Referring Provider Orthopaedic Surgery Sports Medicine; Visit Provider Orthopaedic Surgery Sports Medicine
PROC: (CPT 29805; principal; 2024-06-25 07:10)
DX: M75.41 Impingement syndrome of right shoulder (principal); Z79.4 Long term (current) use of insulin; E11.9 Type 2 diabetes mellitus without complications; M19.011 Primary osteoarthritis, right shoulder; I10 Essential (primary) hypertension; E78.00 Pure hypercholesterolemia, unspecified; K21.9 Gastro-esophageal reflux disease without esophagitis; F90.9 Attention-deficit hyperactivity disorder, unspecified type; G47.33 Obstructive sleep apnea (adult) (pediatric); J45.909 Unspecified asthma, uncomplicated; Z79.84 Long term (current) use of oral hypoglycemic drugs; Z79.899 Other long term (current) drug therapy
CPT/HCPCS: 29824; 29826; 01630; 64415; 36415; 80048; 82962; 83036; 85027; J2405

== ENCOUNTER 2024-06-25 22:39 | Emergency (ER) | payer OTHER, SELFPAY ==
[2024-06-25 22:42] VITALS: BP 142/62; PULSE 87; RESP 22; TEMP 36.1; O2SAT 98; BMI 36.7
--- NOTE | 2024-06-25 23:32 | EKG12_ITS ---
Test Reason : TIGHTNESS Blood Pressure : */* mmHG Vent. Rate : 81 BPM Atrial Rate : 81 BPM P-R Int : 206 ms QRS Dur : 92 ms QT Int : 364 ms P-R-T Axes : 55 104 17 degrees QTcB Int : 422 ms Normal sinus rhythm Rightward axis Borderline ECG Confirmed by TIM CALIX MD ([id number]), movie editor [address] ([id number]) on 06/30/2024 9:07:19 AM Referred By: DELIA Confirmed By: TIM CALIX MD
--- NOTE | 2024-06-25 23:33 | ED.VIS.DYS ---
HPI History of Present Illness Chief Complaint: Shortness of Breath Informant: patient and spouse/S.O. Onset/Context/Timing Onset: Today (Around 1 PM.) and Hours Context: gradual Timing: Continuous Current Severity: Mild Maximum Severity: Mild Worsened by: Nothing Relieved by: Nothing Associated Symptoms Negative for cough Chest Pain: Positive for None Narrative Narrative: 38-year-old male history of asthma, diabetes hypertension. Today had a scope in his right shoulder to clean up scar tissue. He was not hospitalized. As outpatient. 7 1 PM he started in shortness of breath. Uses inhaler and nebulizer at home without significant relief. Denies any fever. No cough. No chest pain. No hemoptysis. No leg pain or swelling. No history of cardiac disease. No history of DVT or PE. PE Risk Factors: Negative for Cancer, OCP + Smoking + > 35, Prior DVT or PE, Recent immobilization or Recent travel Prior similar symptoms: Yes Recent Illness/Hospitalization: No PFSH PFSH Medical History Dietary restriction Abrasion Loss of hearing Broken tooth Wears glasses ADHD MRSA infection Gout Insulin dependent diabetes mellitus Fatty liver High cholesterol History of hiatal hernia Restless legs GERD (gastroesophageal reflux disease) CPAP (continuous positive airway pressure) dependence Leg cramps Non-smoker Cardiology follow-up encounter Arthrosis of right acromioclavicular joint Hypertension Impingement of right shoulder Right shoulder pain NORA (obstructive sleep apnea) Asthma Home Medications ?Medication ?Instructions ?Recorded ?Last Taken ?Type blood sugar diagnostic 09/18/22 Unknown History epinephrine 0.3 mg/0.3 mL 0.3 mg IM ONCE 09/18/22 Unknown History injection, auto-injector (EpiPen) fenofibrate nanocrystallized 145 145 mg PO DAILY 09/18/22 06/24/24 History mg tablet insulin NPH isoph U-100 human 100 30 unit subcut BID 09/18/22 06/24/24 History unit/mL (3 mL) subcutaneous pen (Humulin N NPH U-100 Insulin KwikPen) lisinopril 20 mg tablet 20 mg PO BID 09/18/22 06/24/24 History loratadine 10 mg tablet (Allergy 10 mg PO DAILY 09/18/22 06/25/24 History Relief (loratadine)) metformin 1,000 mg tablet 1,000 mg PO BIDWMEAL 09/18/22 06/24/24 History methocarbamol 500 mg tablet 500 mg PO BID 09/18/22 06/24/24 History sildenafil 100 mg tablet 100 mg PO DAILY PRN sexual activity 09/18/22 06/24/24 17:00 History tirzepatide 12.5 mg/0.5 mL 12.5 mg subcut MO 09/18/22 06/09/24 History subcutaneous pen injector albuterol sulfate 2.5 mg/3 mL 2.5 mg (3 mL) inhalation Q4H PRN 03/17/24 Unknown Rx (0.083 %) solution for nebulization shortness of breath or wheezing #180 mL albuterol sulfate 90 mcg/actuation 2 puff inhalation Q6H PRN 03/17/24 Unknown Rx aerosol inhaler shortness of breath or wheezing #8.5 grams budesonide 160 mcg-glycopyr 9 2 inh inhalation BID #10.7 grams 03/17/24 06/24/24 Rx mcg-formot 4.8 mcg/actuation HFA inhaler (Breztri Aerosphere) ipratropium 0.5 mg-albuterol 3 mg 3 ml inhalation 6XD PRN shortness 03/17/24 Unknown Rx (2.5 mg base)/3 mL nebulization of breath or wheezing #180 mL soln montelukast 10 mg tablet 10 mg PO DAILY #90 tabs 03/17/24 06/24/24 Rx lisdexamfetamine 70 mg capsule 70 mg PO DAILY 06/11/24 06/24/24 History ropinirole 1 mg tablet 2 mg PO QHS 06/11/24 06/24/24 History oxycodone-acetaminophen 5 mg-325 1 tab PO Q4H PRN pain 3 days #20 06/25/24 Unknown Rx mg tablet (Endocet) tabs prednisone 20 mg tablet 40 mg (2 x 20 mg) PO DAILY 5 days 06/26/24 Unknown Rx #10 tabs Allergy/AdvReac Type Severity Reaction Status Date / Time Fish Containing Products Allergy Severe Anaphylaxis Verified 06/25/24 22:42 peanut Allergy Severe Anaphylaxis Verified 06/25/24 22:42 coconut Allergy Mild Hives Verified 06/25/24 22:42 grass pollen Allergy Mild Other Verified 06/25/24 22:42 Iodinated Contrast Media Allergy Mild unknown Verified 06/25/24 22:42 mold Allergy Mild Other Verified 06/25/24 22:42 Family History Father Asthma Sister Chronic bronchitis Surgical History History of incision and drainage History of surgery on lower extremity History of hip surgery Social History Smoking Status: Never smoker ROS ROS ED ROS Narrative Shortness of breath. No other complaints. Constitutional Constitutional ED: Denies chills or fever(s) Eyes Eyes: Denies blurry vision ENT ENT ED: Denies ear pain Cardiovascular Cardiovascular: Denies chest pain, palpitations or racing heartbeat Respiratory/Chest Respiratory/Chest: Reports dyspnea; Denies cough Gastrointestinal Gastrointestinal: Denies abdominal pain, constipation, diarrhea, melena, nausea or vomiting Genitourinary Genitourinary ED: Denies dysuria or hematuria Musculoskeletal Musculoskeletal: Denies arthralgias Integumentary Denies abscess Neurologic Neurologic: Denies headache(s) Psychiatric Psychiatric: Denies anxiety Endocrine Endocrinology: Denies cold intolerance Hematologic/Lymphatic Hematologic/Lymphatic: Denies easy bleeding, easy bruising or lymphadenopathy Allergic/Immunologic Allergic/Immunologic ED: Denies mouth swelling, tongue swelling or urticaria EXAM Physical Exam Narrative Exam Narrative: Well-appearing 38-year-old male sitting upright in bed. Vital signs stable afebrile. Pulse ox 90% on room air no hypoxia. H EENT exam pupils round react light. Moist mucous membranes. Neck nontender no JVD. No lymphadenopathy. Lungs clear to auscultation bilaterally. Equal symmetrical. Heart regular rhythm rate about 85 no murmur. Chest wall and ribs nontender. Abdomen soft nontender. Back nontender. Moving all 4 extremities. He has his right arm in a sling. From recent surgery of the day. 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 Normal dorsi plantarflexion. Normal equal symmetrical radial pulses. Calves are nontender without edema or cords. Neurologically is awake alert. Answer questions following commands. Benign exam. He does have a prolonged expiratory phase but really no wheezing. No rales or rhonchi. Const Vital Signs: 06/25/24 22:42 06/25/24 23:41 Temperature 97 F L Temperature Source Temporal Pulse Rate 87 83 Respiratory Rate 22 H 16 Respiratory Pattern Normal Blood Pressure 142/62 H Blood Pressure Mean 88 Pulse Ox 98 Oxygen Delivery Method Room Air Positive well nourished and well developed; Negative for cachectic, contractures or unkempt General Appearance ED: well developed and NAD; Negative for unkempt, cachectic, contractures or pallor Nutritional Appearance: Negative for cachectic HEENT Reports moist mucous membranes atraumatic; Negative for trauma or tenderness Eyes PERRL and EOMs intact bilaterally Neck no lymphadenopathy, supple, no meningeal signs and no JVD General: Negative for tenderness Lymph Lymphatic: Negative for other Chest Wall Chest: Negative for other Resp normal respiratory effort and clear to auscultation bilaterally Resp Narrative: Prolonged expiratory phase. Clear bilaterally. Equal and symmetrical. Auscultation: Negative for rales, rhonchi, wheezes or diminished lung sounds Cardio regular rate, regular rhythm, S1 normal heart sound, S2 normal heart sound and no murmurs Rate: Negative for bradycardia or tachycardic Rhythm: Negative for abnormal rhythm GI non-tender, non-distended and no masses Auscultation: normoactive bowel sounds Palpation: soft; Negative for tender, guarding or rebound tenderness present Back/Spine no CVA tenderness and normal to inspection Extremity normal to inspection General Extremety ED: Negative for edema or tenderness General Extremity: Negative for edema Neuro oriented x3 and CN's II-XII intact bilaterally Sensorium / Orientation: alert, oriented to person, oriented to place and oriented to time; Negative for orientation impaired, confused, lethargic or stuporous Speech: speech normal Motor Exam: strength 5/5 throughout Psych mental status grossly normal Appearance: Negative for unkempt Attitude: No agitated Mood & Affect: Negative for depressed, anxious or tearful Thought Process: normal thought process Skin no wounds and skin turgor normal General Skin Exam: Negative for jaundice or pallor Lesions: no lesions Rashes: no rashes Trauma: Negative for abrasion or laceration MDM MDM MDM Narrative Medical decision making narrative: 38-year-old male shortness of breath suspect exacerbation of asthma. Will be treated with DuoNeb albuterol aerosols and oral steroids. Chest x-ray and EKG will be obtained. I do not think he needs blood work. He is having no chest pain. No history of DVT or PE. Repeat exam at 12:52 AM patient doing well. Vital signs stable. Pulse ox mid to high 90s. Resting comfortably. Repeat lung exam normal. He is better air movement. Again no wheezing. No rhonchi or rales. Heart is a regular rhythm in the 80s. Patient said he feels improved he is comfortable being discharged home. We went over his EKG and chest x-ray. He has an inhaler and nebulizer at home. I will write him a prescription for 5 days of prednisone but only fill it if needed. History & Record Review Discussion w/independent historian: Patient and Family Additional record(s) reviewed:: Prior outpatient record, Prior ED visit and Prior labs Radiography Chest X-Ray - ED: 2 View, Read by ED Physician, Read by Radiologist, Heart, Lungs, Mediastinum, Bony Structures and No Acute Disease Diagnostic Testing: Clinical Impression(s) from Imaging Studies Chest X-Ray 06/25/24 23:55 IMPRESSION: No evidence of acute disease. Reading Location: [facility] Chest x-ray, 2 views, AP and lateral, interpreted by myself and radiologist shows no acute abnormality. Normal cardiac silhouette. Normal lung rivas. Normal mediastinum. No pneumonia. No pneumothorax. No effusions. Rhythm Strip Rhythm Strip: Sinus Rhythm Rate: 81 Ectopy: None EKG Initial EKG: Attestation: I personally reviewed and interpreted this EKG as follows: Interpretation: Sinus Rhythm and No Acute Injury Pattern Comments: Normal sinus rhythm rate 81 no acute signs of TX or ischemia. Discharge Plan Triage Chief Complaint: Shortness of Breath ED Provider: Karthikeyan Richard Dx/Rx/DC Orders Clinical Impression: Asthma Instructions: Asthma Prescriptions: New prednisone 20 mg tablet 40 mg PO DAILY 5 Days Qty: 10 0RF No Action (DME) blood sugar diagnostic Strip See Rx Instructions .Route Rx Instructions: As directed epinephrine [EpiPen] 0.3 mg/0.3 mL auto-injector 0.3 mg IM ONCE Rx Instructions: as a single dose; may repeat once fenofibrate nanocrystallized 145 mg tablet 145 mg PO DAILY Humulin N NPH Insulin KwikPen 100 unit/mL (3 mL) insulin pen 30 unit subcut BID Rx Instructions: 38 units with breakfast, 38 units with supper. lisinopril 20 mg tablet 20 mg PO BID loratadine [Allergy Relief (loratadine)] 10 mg tablet 10 mg PO DAILY metformin 1,000 mg tablet 1,000 mg PO BIDWMEAL methocarbamol 500 mg tablet 500 mg PO BID sildenafil 100 mg tablet 100 mg PO DAILY PRN (Reason: sexual activity) Rx Instructions: administer 30 minutes to 4 hours before activity tirzepatide 12.5 mg/0.5 mL pen injector 12.5 mg subcut MO albuterol sulfate 90 mcg/actuation HFA aerosol inhaler 2 puff inhalation Q6H PRN (Reason: shortness of breath or wheezing) Qty: 8.5 11RF albuterol sulfate 2.5 mg /3 mL (0.083 %) solution for nebulization 2.5 mg inhalation Q4H PRN (Reason: shortness of breath or wheezing) Qty: 180 6RF Breztri Aerosphere 160-9-4.8 mcg/actuation HFA aerosol inhaler 2 inh inhalation BID Qty: 10.7 3RF ipratropium-albuterol 0.5 mg-3 mg(2.5 mg base)/3 mL solution for nebulization 3 ml inhalation 6XD PRN (Reason: shortness of breath or wheezing) Qty: 180 3RF montelukast 10 mg tablet 10 mg PO DAILY Qty: 90 3RF lisdexamfetamine 70 mg capsule 70 mg PO DAILY ropinirole 1 mg tablet 2 mg PO QHS Rx Instructions: Takes 1mg 3 hours prior to bed and 1mg at HS oxycodone-acetaminophen [Endocet] 5-325 mg tablet 1 tab PO Q4H MDD 6 PRN (Reason: pain) 3 Days Qty: 20 0RF Primary Care Provider: Alysha Price Referrals: Alysha Price, OCCUPATIONAL THERAPY PROGRAM DIRECTOR-C [Primary Care Provider] - As Needed Activity Restrictions/Additional Instructions: Inhaler and nebulizer as needed. Start the prednisone if you feel like you need it. At this time I am not sure you are going to need it. Follow-up with your primary care provider if not improving or return if feeling worse. Print Language: Kazakh Disposition Disposition: Home, Self Care
[2024-06-25] MEDS: Ipratropium/Albuterol Sulfate 3 ML AMPUL.NEB INHALATION (23:37)
[2024-06-25] MEDS: Albuterol 2.5 MG/3 ML VIAL.NEB. INHALATION (23:38)
[2024-06-25 23:41] VITALS: PULSE 83; RESP 16
--- NOTE | 2024-06-25 23:55 | RAD_ITS ---
PROCEDURE: CHEST PA AND LATERAL 06/26/2024 REASON FOR EXAM: DYSPNEA TECHNIQUE: Frontal and lateral views of the chest. COMPARISON: 01/08/2023 FINDINGS: Low lung volumes. The lungs appear clear. Pulmonary vascularity appears within limits. No pneumothorax or pleural effusion. The cardiac and mediastinal contours appear within limits. Note of partially imaged right shoulder soft tissue air consistent with history of recent shoulder procedure. RAD/Chest PA and Lateral IMPRESSION: No evidence of acute disease. Reading Location: [id number]
[2024-06-25] MEDS: predniSONE 20 MG Tablet 60 MG PO (23:58)
[2024-06-26 01:08] VITALS: O2SAT 97
[2024-06-26 01:13] VITALS: BP 128/90; PULSE 85; RESP 22; TEMP 36.4; O2SAT 100
== END 2024-06-26 01:13 | disposition home or self-care (01) ==
PROVIDERS: Emergency Provider Emergency Medicine; PCP Nurse Practitioner Family; Visit Provider Emergency Medicine
DX: J45.909 Unspecified asthma, uncomplicated (principal); E11.9 Type 2 diabetes mellitus without complications; Z79.4 Long term (current) use of insulin; R06.02 Shortness of breath; I10 Essential (primary) hypertension; E78.00 Pure hypercholesterolemia, unspecified; G47.33 Obstructive sleep apnea (adult) (pediatric); Z99.89 Dependence on other enabling machines and devices; Z79.899 Other long term (current) drug therapy; Z79.84 Long term (current) use of oral hypoglycemic drugs; Z79.51 Long term (current) use of inhaled steroids; G25.81 Restless legs syndrome
CPT/HCPCS: 71046; 93005; 94640; 99283; A4216

== ENCOUNTER 2024-08-12 13:00 | Outpatient (RCR) | payer OTHER, SELFPAY ==
--- NOTE | 2024-07-18 13:51 | HP.PTEVAL_ITS ---
Patient's Visit Information Visit Information Visit Information: FLORA FUENTES is a 38 year old M referred to Physical Therapy by Dr. Torrey Flannery MD with a diagnosis of R shoulder pain s/p scope, acromiaplasty 06/25. Date of Evaluation: 07/18/24 Physical Therapist: Yahir Gonsalez, DPT, OCS, CSCS Visit Plan Frequency: 2x /Week Duration: 4-6 Weeks Plan: 2x/ week for 4-6 for IE HEP: pendulum, posutre, supine stick flexion 15, stick er 15, chest stretch 30 5x all 2x/day and POC Treat with Ensure activty modoification as needed, ROM to shoulder and scap mobs as needed. Focus on scap and Rc stabs to HEP then machine to db based Upper half strength to I. Subjective Subjective: R shoulder scope due to scar tissue. Cleaned it out on 06/25/24.. Was painful for 5 yrs since he started working out alot, shoulder started hurting. It was real stiff. Stiff and pain prior anterior lateral. painful at rest and with moving prior. Had PT and injections prior and it only helped 3 weeks. Last 3 weeks has not been bad, movement is better and with minimal activity is manageable. Can hurt at rest. Was in sling for comfort. No exercises except pendulum. Sleep is tossing and turning alot. 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 Not allowed to carry or lift til September 22. Hobbies; Working out and wants to get back to this, weeights and body weight. Basic ADLs are going OK, discomfort is normal with putting shirt on, Pain R shoulder: Pain Intensity (Out of 10): 1 Pain Intensity Range: 0 and 6 Objective Objective: Forward head protracted scap posture is evident. Incisions are healed well on r shoulder without signs of redness or infection. Bruising present upp arm mildly. AROM R shoulder 150 flexio with end range pain, 50 ext rotation with ERP, IR mild ERP, full motion. strength is 4/5 flexion adn abd R, pain with empty can, er 4-, IR 4, not much discomfort, L is 4+. Bi and tri 4+/5 no pain. wrist and thumb are 4+ no pain. sensation WNL gross light touch B UE. reflexes 2/3 bi and tri B. Balance/Special Test Scores Quick DASH Score: 52.2725 Goals Goal 1:: Sleep without waking at night Goal Time Frame: 4-6 Weeks Goal 2:: Full R UE AROM without pain Goal Time Frame: 2-4 Weeks Goal 3:: Pain 0-1/10 at all times Goal Time Frame: 2-4 Weeks Goal 4:: return to lifting workout without increased symtpoms Goal Time Frame: 4-6 Weeks Goal 5:: Plan to return to full duty at work Goal Time Frame: 4-6 Weeks Goal 6:: quickdash score 14 or better Goal Time Frame: 4-6 Weeks Rehabilitation Potential Physical Therapy Diagnosis: stiffness, weakness, discomfort R shoulder limiting funciton and work Rehabilitation Potential: Good Anticipated Interventions Patient/Client Instruction: Educate patient on: Condition and Plan of Care For the Purpose of:: To decrease pain, To increase ROM, To improve muscle performance and motor function, To increase tolerance to activity/condition/position and To improve ability of physical actions for home/community/work/leisure Therapeutic Exercise to Include: Strength training, Postural training, Relaxation training, Passive ROM, Active ROM and Dynamic Lumbar Stabilization For the Purpose of:: To decrease pain, To increase ROM, To improve nutrient delivery to tissue, To improve muscle performance and motor function and To increase tolerance to activity/condition/position Manual Therapy Techniques to Include: Mobilization, Passive ROM and Soft tissue mobilization For the Purpose of:: To increase ROM and To improve nutrient delivery to tissue Cryotherapy (ice pack, ice massage): Yes For the Purpose of:: To decrease pain and To decrease swelling/inflammation Text: Thank you for the opportunity to evaluate your patient. For Medicare and Medicare HMO plans, please review the plan of care and approve it. It will need to be FAXED BACK to us at [phone] for Medicare purposes. For Medicare only, by signing this I certify the plan of care. Please let me know if there are questions or concerns regarding this plan of care. Physician Sig nature: Date:
--- NOTE | 2024-09-18 15:52 | HP.PT.NRP ---
Patient Information Patient Information: FLORA FUENTES was seen in my office for initial evaluation on 07/18/24. The following Plan of Care was established for this patient: POC Established Initial Frequency: 2x /Week Initial Duration: 4-6 Weeks Anticipated Interventions Patient/Client Instruction: Educate patient on: Condition and Plan of Care For the Purpose of:: To decrease pain, To increase ROM, To improve muscle performance and motor function, To increase tolerance to activity/condition/position and To improve ability of physical actions for home/community/work/leisure Therapeutic Exercise to Include: Strength training, Postural training, Relaxation training, Passive ROM, Active ROM and Dynamic Lumbar Stabilization For the Purpose of:: To decrease pain, To increase ROM, To improve nutrient delivery to tissue, To improve muscle performance and motor function and To increase tolerance to activity/condition/position Manual Therapy Techniques to Include: Mobilization, Passive ROM and Soft tissue mobilization For the Purpose of:: To increase ROM and To improve nutrient delivery to tissue Cryotherapy (ice pack, ice massage): Yes For the Purpose of:: To decrease pain and To decrease swelling/inflammation Last Seen Last Seen: This patient was last seen in our office 08/12/24. Pertinent comments regarding their Physical therapy will appear below: Pt sn 8 visits of POC. He no showed for his last visit and recheck. At this point, it has been ovr a month and I wlll discontinue from my care. At this point I will be discontinuing this patient from physical therapy. I would be happy to see this patient again in the future if found appropriate by the physician. Thank you! Yahir Gonsalez, DPT, OCS, CSCS Balance/Gait/Functional tests Balance/Special Test Scores Quick DASH Score: [phone]
== END 2024-08-12 19:00 | disposition home or self-care (01) ==
LOC: PT 13:00
PROVIDERS: PCP Nurse Practitioner Family; Visit Provider Orthopaedic Surgery Sports Medicine
DX: M25.811 Other specified joint disorders, right shoulder (principal); M25.511 Pain in right shoulder
CPT/HCPCS: 97035; 97110; 97140; 97161